=== PATIENT | female | born 2000 | race Native Hawaiian/Other Pacific Islander ===

== ENCOUNTER 2022-05-02 15:40 | Outpatient (CLI) | payer BC, SELFPAY ==
--- OUTSIDE RECORDS SUMMARY | 2022-05-02 15:42 | XMS_ITS | Encounter Summary ---
:2000 Author Organization [facility] Address [address] [place] [address] Care Team Providers Name Role Phone Karen Zaman APRN, C.N.P. Primary Care Provider [phone] Reason for Visit Reason Comments Preventive Visit Contraception Encounter Details Date Type Department Care Team Description 11/22/2017 Office Visit Department of Maegan Vela Preventive Gynecological Exam (Primary Dx); Obstetrics and BART Meyer, C.N.P. Need Vaccine Immunization Human Papillom avirus; Gynecology in [address] Management Contraceptive; [place], [place] Polycystic Ovary Syndrome [address] [address] [place] [phone] (Work) [phone] Social History Tobacco Use Types Packs/Day Years Used Date Smoking Tobacco: Never Smokeless Tobacco: Never Alcohol Use Standard Drinks/Week Comments No 0 (1 standard drink = 0.6 oz pure alcoho l) Sex Assigned at Date Recorded Not on file documented as of this encounter Last Filed Vital Signs Vital Sign Reading Time Taken Comments Blood Pressure 108/58 11/22/2017 1:36 PM CDT Pulse 78 11/22/2017 1:36 PM CDT Temperature - - Respiratory Rate 18 11/22/2017 1:36 PM CDT Oxygen Saturation - - Inhaled Oxygen Concentration - - Weight 71.6 kg (157 lb 15.4 oz) 11/22/2017 1:36 PM CDT Height 159.5 cm (5' 2.8) 11/22/2017 1:36 PM CDT Body Mass Index 28.16 11/22/2017 1:36 PM CDT Body Mass Index Percentile 91.28 % 11/22/2017 1:36 PM CD T Growth Chart: [facility] (Girls, 2-20 Years) documented in this encounter H&P Notes Maegan Vela APRN, CJustineN.P. - 11/22/2017 1:00 PM CDT CHIEF COMPLAINT/REASON FOR VISIT Chief Complaint Patient presents with ??? Preventive Visit ??? Contraception HISTORY OF PRESENT ILLNESS Otilia is an 17-year-old nulliparous female whose last menstrual period started 11/10/2017. She is utilizing oral contraceptive pill for control. She has had no problems with this and needs a refill today. She has not noticed any side effects with the control pill, but her mom says that sheis more vasquez now that she is on the pill. Her only other concern is surrounding her sleep. States that she only needs about 4-5 hours of sleep per night. She feels rested during the daytime hours. States that her mom is concerned because she does not feel that she is getting enough sleep. She does work the late shift on many occasions at [employer], which causes her to have some disrupted sleep. Shefeels that she is functioning just fine on this amount of sleep and states that this is not a concern for her today. MEDICATIONS Current Outpatient Prescriptions Medication Sig Dispense Refill ??? norgestimate-ethinyl estradiol (ORTHO TRI-CYCLEN LO, 28,) 0.18/0.215/0.25 mg-25 mcg per tablet Take 1 tablet by mouth daily. 84 tablet 3 No current facility-administered medications for this visit. ALLERGIES No Known Allergies SYSTEMS REVIEW Pertinent positives noted in HPI. Remainder of review of systems is negative. PAST MEDICAL/SURGICAL HISTORY Past Medical History: Diagnosis Date ??? Eczema ??? Overweight Body Mass Index 25-29.9 Adult ??? Polycystic Ovary Syndrome Past Surgical History: Procedure Laterality Date ??? ANKLE SURGERY Bilateral 2014 surgery to seperate fused ankle bones at [facility] in [facility] ??? ANKLE SURGERY Bilateral 2016 Surgery to correct duck gait. ??? HARDWARE REMOVAL FOOT / ANKLE Bilateral 2018 removed hardware from previous surgery PREVENTATIVE HEALTH Pap Smear: Not necessary till she is 20. Gonorrhea/Chlamydia: Declined. Mammogram: Not necessary due to age. Human Papilloma Virus vaccine: 1st dose of the vaccine was given today. She will return in 2 months for her next dose and 6 months for her final dose. Tdap: 05/18/2010. Influenza vaccine: Declines. Lipid panel: Declines. Diabetic screening: Declines. Colon screening: Not necessary due to age. SOCIAL HISTORY Social History Social History ??? Marital status: Single Spouse name: N/A ??? Number of children: N/A ??? Years of education: N/A Occupational History ??? [employer] ??? Student at [employer] Social History Main Topics ??? Smoking status: Never Smoker ??? Smokeless tobacco: Never Used ??? Alcohol use No ??? Drug use: No ??? Sexual activity: Yes Partners: Male control/ protection: Pill, Condom Other Topics Concern ??? None Social History Narrative ??? None FAMILY HISTORY Family History Problem Relation Age of Onset ??? Diabetes Mother ??? Unknown Father ??? No Known Problems Brother ??? Diabetes Maternal Grandmother ??? Unknown Paternal Grandmother ??? Unknown Paternal Grandfather VITAL SIGNS BP 108/58 Pulse 78 Resp 18 Ht 159.5 cm Wt 71.6 kg LMP 11/10/2017 (Exact Date) BMI 28.16 kg/m?? PHYSICAL EXAMINATION GENERAL: She is a well-appearing female, in no acute distress. SKIN: Warm, dry and pink. No rashes, lesions or bruising. HEENT: Vision and hearing grossly intact. LYMPH NODES: No cervical lymphadenopathy. No masses or tenderness. THYROID: No thyromegaly. No tenderness to palpation. HEART: Regular rate and rhythm. No murmurs, rubs, or gallops. LUNGS: Breathing nonlabored. Lungs clear to auscultation bilaterally. No wheezes or rales. ABDOMEN: Soft, nontender, nondistended. No masses palpable. EXTREMITIES: Lower extremities are nontender. No edema. Gait normal. MENTAL: Alert and oriented x3. Affect pleasant. Mood happy. IMPRESSION/REPORT/PLAN #1 Need Vaccine Immunization Human Papillomavirus First does provided today after discussing the risks, benefits, and side effects. She will return in2 months for her 2nd dose and 6 months for her 3rd dose. Nurse visits have been ordered for these times. #2 Preventive Gynecological Exam Reassured patient of normal exam findings today. History updated in electronic medical record. Recommend she return in 1 year for routine preventative health exam. #3 Management Contraceptive control pill was renewed today. I would like to see her back in 1 year for renewal. She will contact me if she has any concerns or problems. #4 Polycystic Ovary Syndrome Currently managed with control pills. She has no concerns at this time. documented in this encounter Plan of Treatment Not on filedocumented as of this encounter Visit Diagnoses Diagnosis Preventive Gynecological Exam - Primary Need Vaccine Immunization Human Papillom avirus Management Contraceptive Polycystic Ovary Syndrome documented in this encounter Care Teams Desulfurizer Hand Relationship Specialty Start Date End Date Karen Zaman APRN, C.N.P. PCP - General 02/23/17 05/11/21 [address], [place] [phone] documented as of this encounter
--- OUTSIDE RECORDS SUMMARY | 2022-05-02 15:42 | XMS_ITS | Encounter Summary ---
:2000 Author Organization [facility] Address [address] [place] [address] Care Team Providers Name Role Phone Unavailable Primary Care Provider Unavailable Encounter Details Date Type Department Care Team Description 10/07/2014 Hospital Encounter HX [facility] OBDain Mcnally M.D. [address] [place], [place] [phone] (Wo rk) Social History Tobacco Use Types Packs/Day Years Used Date Smoking Tobacco: Never Assessed Sex Assigned at Date Recorded Not on file documented as of this encounter Last Filed Vital Signs Vital Sign Reading Time Taken Comments Blood Pressure - - Pulse - - Temperature - - Respiratory Rate - - Oxygen Saturation - - Inhaled Oxygen Concentration - - Weight 76.3 kg (168 lb 3.4 oz) 10/07/2014 3:32 PM ELECTRIC METER TESTER Height - - Body Mass Index - - documented in this encounter H&P Notes Daniela Arnold M.D. - 10/07/2014 3:19 PM CST [id number] CHIEF COMPLAINT/REASON FOR VISIT Patient was seen in consultation at the request of her primary provider, Amanda Llanos, Nurse Practitioner, for secondary amenorrhea. HISTORY OF PRESENT ILLNESS Hayley is a 14-year-old nulliparous female who presents in consultation for secondary amenorrhea. Hayley underwent menarche at age 12. With her first period she had just 2 days of bleeding. Then about 3 months later she had another episode of vaginal bleeding that lasted only 1 day. She has had no vaginal bleeding since that time. She does report that over the last 2 years she has crampy abdominal painthat is episodic and occurs about 1 time per month at about the same time each month. This lasts about 1 day and is on and off, lasting about 3 minutes with each episode. She reports mild acne only on her face and she denies any abnormal hair growth. When she went in to see Amanda Llanos, laboratory evaluation was undertaken which showed normal TSH and prolactin, normal FSH and estradiol, normal fasting glucose, normal cholesterol but elevated total testosterone. MEDICATIONS See EMR. ALLERGIES See EMR. SYSTEMS REVIEW GENERAL: No fevers, chills, fatigue, unintentional weight loss or weight gain. HEENT: No changes in vision or hearing, no sore throat or nasal congestion. CARDIOVASCULAR: No chest pain, irregular heartbeat or racing heart. RESPIRATORY: No shortness of breath, cough or wheeze. GASTROINTESTINAL: No nausea, vomiting, diarrhea, constipation or abdominal pain. GENITOURINARY: Positive for abnormal vaginal discharge. No pain or burning with urination, no irregular vaginal bleeding, heavy periods, painful periods, leaking urine, leaking stool or gas. SKIN: Positive for rashes. BREASTS: No masses or lumps, no discharge from the nipples. NEUROLOGIC: No difficulty with memory, numbness, tingling, falls. PSYCH IATRIC: No anxiety, depression, or difficulty sleeping. ENDOCRINE: No heat intolerance, cold intolerance, excessive thirst or hair loss. PAST MEDICAL/SURGICAL HISTORY PAST MEDICAL HISTORY: See EMR. PAST SURGICAL HISTORY: Negative. MAIN GALLEY SCULLION HISTORY: Patient has never been . She has had a boyfriend in the past but has not been involved in a sexual way at all. She has never even kissed a boy. Please see the HPI for her menstrual history. SOCIAL HISTORY No tobacco, alcohol, or drug use. 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 She has no regular cardiovascular exercise and is not involved in any activities at school. She does report walking a lot at work during the summer. FAMILY HISTORY See EMR. VITAL SIGNS See EMR. PHYSICAL EXAMINATION GENERAL: Well-nourished female in no acute distress. HEAD: Normocephalic, atraumatic. EENT: Vision and hearing grossly intact. HEART: Regular rate and rhythm, no murmurs, rubs, or gallops. CHEST: Clear to auscultation bilaterally, no wheezes or rales. ABDOMEN: Soft, nondistended, nontender, normoactive bowel sounds. PELVIC: External genitalia without lesions or abnormalities. Normal pubic hair distribution. Tre stage 4. No clitoromegaly. Urethral meatus normal location and appearance, without masses. BREASTS: Symmetric bilaterally. Tre stage 4 breast development. No lesions or dimpling of the skin noted. THYROID: No thyromegaly or nodularity. LOWER EXTREMITIES: Nontender. No edema. SKIN: Hyperpigmentation with mild skin thickening in the axillary and neck folds consistent with acanthosis nigricans. Dark hair growth along the low back and upper lip. Noninflammatory acne diffusely on the face and mild noninflammatory acne on the upper chest. NEUROLOGIC: Alert and oriented x3. Physical examination performed with my nurse, Effie Lawrence, present. IMPRESSION/REPORT/PLAN A 14-year-old nulliparous female who presents in consultation for secondary amenorrhea, likely related to PCOS. 1. Secondary amenorrhea: The patient has amenorrhea, acne, evidence of hirsutism with dark hair growth on her lower back and upper lip and biochemical evidence of hyperandrogenemia with an elevated total testosterone on recent laboratory evaluation. Therefore, she meets criteria for polycystic ovariansyndrome. However, to rule out end-organ dysfunction, I am going to give her a course of Provera for10 days and we will see if she has a withdrawal bleed. I suspect that she will. If not, we would need to evaluate for an end-organ issue. We discussed that she does meet criteria for PCOS today. We discussed the pathophysiology of PCOS at length and she was also given handout on PCOS that she can review on her own with her mother. We discussed that women PCOS are at increased risk of hyperlipidemia, which she does not currently have, as well as glucose intolerance or overt diabetes. We discussed that a fasting sugar does not always detect diabetes in PCOS patients and that a 2 hour GTT is recommended. She will return for this at her convenience but does need to be fasting when she returns. We willneed to discuss the importance of maintaining a healthy weight if possible or even losing a modest amount of weight, which can help with return of ovarian function when she returns. We will also need to discuss long-term treatment of this such as management with OCPs when she returns. If she were to fail to have withdrawal bleed on the Provera, as noted above, we would need to proceed with further evaluation with a course of oral contraceptive pills for diagnostic purposes. In the meantime, the patient was counseled regarding the Provera and to expect a withdrawal bleed 1 to 7 days after stopping the medication 2. Obesity: As noted above, even modest weight loss should help with her ovarian function. We will discuss this further when she returns. 3. Followup: Three weeks. Daniela Arnold M.D./colleen cc: Amanda Llanos [phone] [place] [id number] Electronically Signed By: DANIELA ARNOLD MD On: 10/09/2014 07:04 PM Source: [facility] MHSDOLBEYNONRADSYS Document Id: [id number] TRIC METER TESTER documented in this encounter Miscellaneous Notes Miscellaneous - Daniela Arnold M.D. - 10/07/2014 6:25 PM CST Ambulatory Patient Summary [facility] [address] [place], [place] [id number] Visit Information Name: HAYLEY SIBLEY [facility] Number: [id number] Visit Date: 10/07/2014 18:25:34 Attending Provider: DANIELA ARNOLD MD Primary Care Provider: PCP, UNASSIGNED - FB HAYLEY SIBLEY has been given the following list of medications: Your Medications It is important to take your medications as directed. Use a pill box or chart to help remind you to take your medications. Please let your doctor or nurse know if you have problems taking your medications. Medication/Strength How to Take Indications/Special Instructions/Comments/Notes for Patient Medication Changes/Routing medroxyPROGESTERone (Provera 10 mg oral tablet) 1 Tablet(s), Oral, once a day New Routed to [facility] [address] [place] [address] Stop Taking the Following Medications: Medication list as of 10-07-14 18:25 Attention: If you have any medications at home that are not on this list, DO NOT take them until youcontact your provider for clarification. Give a copy of your medication list to your primary care provider. Update your medication list any time medications or doses are changed and carry your medication list at all times in case of emergency. Electronically Signed By: DANIELA ARNOLD MD Signed On:07-OCT-2014 18:25:30 Additional Information: Source: [facility] POWERCHART Document Id: [id number] TRIC METER TESTER Miscellaneous - Daniela Arnold M.D. - 10/07/2014 6:25 PM CST Ambulatory Discharge Medication List [address] [phone] Visit Information Name: HAYLEY SIBLEY [facility] Number: [id number] Visit Date: 10/07/2014 18:25:33 Attending Provider: DANIELA ARNOLD MD Primary Care Provider: PCP, UNASSIGNED - FB TOÑITO HAYLEY has been given the following list of medications: Your Medications It is important to take your medications as directed. Use a pill box or chart to help remind you to take your medications. Please let your doctor or nurse know if you have problems taking your medications. Medication/Strength How to Take Indications/Special Instructions/Comments/Notes for Patient Medication Changes/Routing medroxyPROGESTERone (Provera 10 mg oral tablet) 1 Tablet(s), Oral, once a day New Routed to [address] [address] Stop Taking the Following Medications: Medication list as of 10-07-14 18:25 Attention: If you have any medications at home that are not on this list, DO NOT take them until youcontact your provider for clarification. Give a copy of your medication list to your primary care provider. Update your medication list any time medications or doses are changed and carry your medication list at all times in case of emergency. Electronically Signed By: DANIELA ARNOLD MD Signed On:07-OCT-2014 18:25:30 Additional Information: Source: [facility] POWERCHART Document Id: [id number] TRIC METER TESTER Miscellaneous - Manan Lawrence L.P.N. - 10/07/2014 3:32 PM CST Adult Planning Consultant Intake/History Adult Planning Consultant Intake/History Entered On: 10/07/2014 15:33 ELECTRIC METER TESTER Performed On: 10/07/2014 15:32 ELECTRIC METER TESTER by MANAN LAWRENCE Intake Chief Complaint : Consult amenorrhea for 2 years Peripheral Pulse Rate : 78 /min Respiratory Rate : 16 /min Heart Rhythm : Regular Systolic Blood Pressure : 108 mmHg Diastolic Blood Pressure : 62 mmHg NIBP Mean : 77 mmHg BP Location : Right upper extremity Blood Pressure Cuff Size : Regular Actual Weight : 76.3 kg(Converted to: 168 lb 3 oz) Weight Source : Standing scale Dosing Weight Clinic : 76.3 kg CAROLDORINDAMANAN L - 10/07/2014 15:32 ELECTRIC METER TESTER General Info Languages : Albanian Is Patient Female and 13-50 no hysterectomy : Yes Status : Patient denies Are you ? : No MANAN LAWRENCE - 10/07/2014 15:32 ELECTRIC METER TESTER Subjective Pain Symptoms : No MANAN LAWRENCE - 10/07/2014 15:32 ELECTRIC METER TESTER Dependent Habits Tobacco Use/Currently Using : No Smoking Status : Never smoker MANAN LAWRENCE - 10/07/2014 15:32 ELECTRIC METER TESTER ID Screen Travel Within Last 21 Days : No MANAN LAWRENCE - 10/07/2014 15:32 ELECTRIC METER TESTER Source: [facility] [employer] Document Id: [id number] ELECTRIC METER TESTER!26 TRIC METER TESTER documented in this encounter Plan of Treatment Not on filedocumented as of this encounter Visit Diagnoses Not on filedocumented in this encounter
--- OUTSIDE RECORDS SUMMARY | 2022-05-02 15:42 | XMS_ITS | Encounter Summary ---
:2000 Author Organization [facility] Address [address] [place] [address] Care Team Providers Name Role Phone Unavailable Primary Care Provider Unavailable Encounter Details Date Type Department Care Team Description 08/24/2009 Hospital Encounter HX NO MAPPING Cristine Sousa M.D. [phone] (Wo rk) Social History Tobacco Use Types Packs/Day Years Used Date Smoking Tobacco: Never Assessed Sex Assigned at Date Recorded Not on file documented as of this encounter Plan of Treatment Not on filedocumented as of this encounter Procedures Procedure Name Priority Date/Time Associated Diagnosis Comme nts DX FOOT RIGHT 3+ Routine 08/24/2009 4:30 PM Resul ts for this VIEWS LIGHT BULB TESTER procedure are i n the results section. DX TIBIA FIBULA Routine 08/24/2009 4:30 PM Result s for this RIGHT 2 VIEWS LIGHT BULB TESTER procedure are in the results section. documented in this encounter Results DX Foot Right 3+ Views (08/24/2009 4:30 PM LIGHT BULB TESTER) Anatomical Region Laterality Modality Lower Extremity, Foot Right Radiographic Imagi ng Specimen (Source) Anatomical Collection Method Collection Time Re ceived Time Location / / Volume Laterality 08/24/2009 4:30 PM LIGHT BULB TESTER Narrative 08/24/2009 4:48 PM LIGHT BULB TESTER FINDINGS: The bones are intact and show no evidence of fracture or focal destruction. The joint spaces are maintained and no soft tissue abnormality is seen. The epiphyses are n ormal for age. ?? CONCLUSION: Negative right foot Procedure Note Espinoza Vela M.D. / Provider, Michael rodriguez M.D. - 02/13/2017 FINDINGS: The bones are intact and show no evidence of fracture or focal destruction. The joint spaces are maintained and no soft tissue abnormality is seen. The epiphyses are n ormal for age. CONCLUSION: Negative right foot Norberto Cole Jr., R.D.M.S. G DIAGNOSTIC IMAGI NG PROCEDURES DX Tibia Fibula Right 2 Views (08/24/2009 4:30 PM LIGHT BULB TESTER) Anatomical Region Laterality Modality Lower Extremity, TibFib Right Radiographic Ameena ging Specimen (Source) Anatomical Collection Method Collection Time Re ceived Time Location / / Volume Laterality 08/24/2009 4:30 PM LIGHT BULB TESTER Narrative 08/24/2009 4:49 PM LIGHT BULB TESTER FINDINGS: The right tibia and fibula are intact and show no evidence of fracture or focal destruction. The ep iphyses are normal for age. No soft tissue abnormality is seen. Procedure Note Espinoza Vela M.D. / ProviderMichael M.D. - 02/13/2017 FINDINGS: The right tibia and fibula are intact and show no evidence of fracture or focal destruction. The ep iphyses are normal for age. No soft tissue abnormality is seen. Norberto Cole Jr., R.D.M.S. IMG DIAGNOSTIC IMAGI NG PROCEDURES documented in this encounter Visit Diagnoses Not on filedocumented in this encounter
--- OUTSIDE RECORDS SUMMARY | 2022-05-02 15:42 | XMS_ITS | Encounter Summary ---
:2000 Author Organization [facility] Address [address] [place] [address] Care Team Providers Name Role Phone Unavailable Primary Care Provider Unavailable Encounter Details Date Type Department Care Team Description 02/24/2011 Hospital Encounter HX [facility] Sa hawk Sousa M.D. [phone] (Wo rk) Social History Tobacco Use Types Packs/Day Years Used Date Smoking Tobacco: Never Assessed Sex Assigned at Date Recorded Not on file documented as of this encounter Last Filed Vital Signs Vital Sign Reading Time Taken Comments Blood Pressure - - Pulse - - Temperature - - Respiratory Rate - - Oxygen Saturation - - Inhaled Oxygen Concentration - - Weight 55.3 kg (121 lb 14.6 oz) 02/24/2011 4:00 PM CDT Height 154 cm (5' 0.63) 02/24/2011 4:00 PM CDT Body Mass Index 23.32 02/24/2011 4:00 PM CDT Body Mass Index Percentile 91.32 % 02/24/2011 4:00 PM CD T Growth Chart: CDC (Girls, 2-20 Years) documented in this encounter Progress Notes Angella Sousa M.D. - 02/24/2011 12:00 AM CDT [id number] CHIEF COMPLAINT/ REASON FOR VISIT Behavioral concerns. Otilia is frequently scared or upset. Severe psychosocial stresses. HISTORY OF PRESENT ILLNESS Otilia was evaluated for a sore throat and cough 2 weeks ago. Immediately after that visit, mother called to voice her concern about Otilia's mental health. She said that Otilia often breaks into tears and becomes extremely anxious when she sees a police car. Mother feels this is because her mother was incarcerated for 2 months last year. Otilia learned of this after the fact. She says that her mother told her she was going to [place] to supervisor picking crew her grandmother. When Otilia learned that her mother was actually in half-way, she was especially upset. Even now, Otilia does not know why her mom was incarcerated. Nor does mother share these details with us. Mom feels that ever since then, Otilia has been particularly vasquez. She is often irritable and upset, sometimes angry and sometimes crying. She has finished 6th grade but failed a number of classes. Her school performance is very poor. Mother says no plan has been advanced to help Otilia with her homework, but I have not yet had a chance to discuss this with her teachers. Mother gives me written permission today to do that. Otilia says that she is in ESL, Japanese is a second language, and that her writing is poor. She has trouble with reading and math. There is nothing at school about which she is enthusiastic. She has met with a counselor at school. She says this is because there is too much drama at school. I ask her to elaborate but she is vague in her descriptions. She says people make fun of her because of the way she walks. She feels she has only a few close friends. She often feels like an outsider at school. However, she does not relate any incidence of bullying. Otilia also complains that there is too much drama at home. She lives with her mother and brother. Her dad has never been in the picture. Interestingly, mother's description of Otilia's behavior is that it involves too much drama. A portion of the visit is conducted by interviewing Otilia privately. When I ask for some things she would like to change, she says she wishes her mother and brother stop making fun of her weight. She says, I used to be thin but now I'm fat. She says that other family members make pig noises when she is nearby. Otilia is not in any individual or team sports. For exercise, she will sometimes walk downtown with friends. [place] She says it is possible to play outside and that other children in the neighborhood are outside playing. However, given Otilia's age, I do not think she plays outside much with her neighbors. She denies any feeling that she would be better off or that she would do something to hurt herself. In fact when the subject comes up, she squints her eyes and shakes her head; it is unpleasant to her. She also wishes that she was not expected to do things at home and then yelled at when everything is not done as mother expects. Otilia says she is expected to clean up after her mother and brother and that her mother complains that Otilia has not done this or that. Finances are a concern. Otilia's mother works at [employer]. Money is tight. Otilia does not have a chance to earn money or get an allowance. 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 CURRENT MEDICATIONS None ALLERGIES No known allergies SYSTEMS REVIEW SKIN: No rashes. ENT: Her sore throat resolved. LUNGS: Respiratory: She complains that she is still coughing. HEART: No chest pain. GI: No complaints of constipation. : She is premenarchal. SOCIAL HISTORY She lives with her mother and brother. She says she does not have a boyfriend. Nor has she had one in the past. VITAL SIGNS See EMR PHYSICAL EXAM GENERAL: BMI, at 23, is at the 91st percentile for age. She is chubby. SKIN: No rashes. EYES: No redness or drainage. EOM full. ENT: Normal tympanic membranes. Posterior pharynx normal. LYMPH NODES: No cervical lymph node enlargement. HEART: Normal S1 and split S2 without murmurs. LUNGS: Clear breath sounds. No wheezing. When I have Otilia take deep breaths, she dissolves into a coughing fit. Her breaths are quite exaggerated, even for a good exam. She is dramatic in her presentation and the cough sounds self induced. ABDOMEN: Soft, without masses or hepatosplenomegaly. MENTAL: Voice soft and immature, some baby talk pronunciation, speech rapid. Mood neutral, affect with exaggerated, dramatic quality. IMPRESSION/REPORT/PLAN 1. Almost 11-year-old girl with adjustment disorder with variable mood. Mild depressive symptoms, as well as irritability. 2. Severe psychosocial stresses. 3. School failure. I will start by getting some information from her teachers and the school counselor. 4. Mild residual cough. No evidence of any chronic illness or ongoing viral illness. 5. Estimated GAF 60. 6. I am recommending an evaluation by a therapist. I referred Otilia to [facility]. I have given mother all contact information and have asked that she set up an appointment. 7. Detailed evaluation, 30 minutes. SMB/glt Signed Angella Sousa M.D. Burring Wheel Operator Electronically Signed By: ANGELLA SOUSA MD On: 03/02/2011 11:44 am Modified by and Electronically Signed by: ANGELLA SOUSA MD On: 03/02/2011 11:44 am Source: [facility] MHSDOLBEYNONRADSYS Document Id: [id number] documented in this encounter Miscellaneous Notes Telephone Encounter - Sammie Taylor LJustinePJustineN. - 12/21/2012 11:03 AM CDT Phone Message Document Contains Addenda Addendum by ANGELLA SOUSA MD on 21 December 2012 11:04:59 CDT From: ANGELLA SOUSA MD To: SAMMIE TAYLOR; Sent: 12/21/2012 11:04:59 CDT Subject: RE: Phone Message thank you. From: SAMMIE TAYLOR To: ANGELLA SOUSA MD; Sent: 12/21/2012 11:03:45 CDT Subject: Phone Message Caller is: ( ) Patient ( x ) Mother ( ) Father ( ) Spouse ( ) Daughter ( ) Son ( ) Pharmacy ( ) Other: Physician: Patient MRN #: Reason for Call: Phonecall from mom, requesting a copy of Otilia's physical for sports, in reviewing Otilia's records, there is not a current physical on file, advised to mom that Otilia needs a physical exam in order for us to complete the necessary documents for at school. Message: Advice/Action: Source used: ( ) Verbalizes understanding of instructions ( ) Instructed to call back if symptoms worsen or do not resolve ( ) Refused to see provider ( ) Appointment Scheduled ( ) OK to leave message on voice mail ( ) Patient told to expect return call: ( ) today ( ) tomorrow ( ) next work day ( ) Patient's email ( ) Patient told physician out of office, will call upon return call on ( ) ( ) Patient told physician out of office, routed to other physician ( ) Other ( ) Call back telephone number ( ) Call back cell phone number ( ) Source: [facility] CorrexCHART Document Id: [id number] Electronically signed by Conversion, [facility] Forepart Rounder [id number] at 02/12/2017 10:06 PM CDT Miscellaneous - Sammie Taylor L.PJustineN. - 02/24/2011 4:00 PM CDT Pediatric Auto Air Conditioning Apprentice Intake/History Pediatric Auto Air Conditioning Apprentice Intake/History Entered On: 02/24/2011 16:02 CDT Performed On: 02/24/2011 16:00 CDT by SAMMIE TAYLOR Intake Chief Complaint: behavior issues Temperature Oral: 36.8C(Converted to: 98.2DegF) Peripheral Pulse Rate: 68/min Respiratory Rate: 16/min Systolic Blood Pressure: 110mmHg Diastolic Blood Pressure: 60mmHg NIBP Mean: 77mmHg BP Location: Left upper extremity Heart Rhythm: Regular Height: 154.00cm(Converted to: 5ft 1in, 60.63in) Actual Weight: 55.300kg(Converted to: 121lb 15oz) Weight Source: Standing scale Dosing Weight Clinic: 55.30kg Clinic BSA: 1.54 Body Mass Index: 23.32kg/m2 SAMMIE TAYLOR - 02/24/2011 16:00 CDT Subjective Pain Symptoms: No SAMMIE TAYLOR - 02/24/2011 16:00 CDT Dependent Habits Tobacco Use/Currently Using: No SAMMIE TAYLOR - 02/24/2011 16:00 CDT Allergy Allergies (Active) NKA Estimated Onset Date: Unspecified ; Created By: ANGELLA SOUSA MD; Reaction Status: Active ; Category: Drug ; Substance: NKA ; Type: Allergy ; Updated By: ANGELLA SOUSA MD; Reviewed Date: 12/16/2009 13:11 CDT Source: [facility] Vivo Document Id: [id number] CDT!21 documented in this encounter Plan of Treatment Not on filedocumented as of this encounter Visit Diagnoses Not on filedocumented in this encounter
--- OUTSIDE RECORDS SUMMARY | 2022-05-02 15:42 | XMS_ITS | Clinical Summary ---
:2000 Author Organization [facility] Address [address] [place] [address] Care Team Providers Name Role Phone Elsewhere, Pcp Primary Care Provider Unavailable Source Comments Patient records contain information from all sites at [facility]. For routine questions regarding patient records, call [phone] during business hours, M-F 8:00 AM - 5:00 PM Central Time. Record requests for emergency care only can be directed to [phone] at any time.[facility] Allergies No known active allergies Medications Medication Sig Dispensed Refills Start Date End Date Status norgestimate-ethinyl Take 1 tablet by 84 tablet 3 11/22/2017 Active estradiol (ORTHO mouth daily. TRI-CYCLEN LO, 28,) 0.18/0.215/0.25 mg-25 mcg per tablet Active Problems Problem Noted Date Overweight Body Mass Index 25-29.9 Adult 11/22/2017 Milium Colloid 06/12/2016 Polycystic Ovary Syndrome 10/07/2014 Rash 09/17/2014 Immunizations Name Administration Dates Next Due 9vHPV 11/22/2017 DTaP (Infanrix, Tripedia) 12/11/2003, 06/13/2000, 1999 , 1999, 1999 H1N1 All Forms 08/24/2009 HepA Pediatric/Adolescent 05/18/2010 HepB, Unspecified 05/18/2010, 1999, 1999, 03/11 Hib (HbOC) (discontinued) 1999 Hib (PRP-T) (ACTHIB, HIBERIX) 06/13/2000, 1999 IPV 12/11/2003, 1999, 1999, 05/12 MCV4 (Menactra) 05/18/2010 MMR 12/11/2003, 03/23/2000 PCV7 (discontinued) 03/26/2001, 02/08/2001 Tdap 05/18/2010 RONALD 11/04/2002 Family History Medical History Relation Name Comments No Known Problems Brother Unknown Father Diabetes Maternal Grandmother Diabetes Mother Unknown Paternal Grandfather Unknown Paternal Grandmother Relation Name Status Comments Brother Alive Father Maternal Grandfather Maternal Grandmother Alive Mother Alive Paternal Grandfather Paternal Grandmother Social History Tobacco Use Types Packs/Day Years Used Date Smoking Tobacco: Never Smokeless Tobacco: Never Alcohol Use Standard Drinks/Week Comments No 0 (1 standard drink = 0.6 oz pure alcoho l) Sex Assigned at Date Recorded Not on file Last Filed Vital Signs Vital Sign Reading [...] Mass Index 28.16 11/22/2017 1:36 PM CDT Plan of Treatment Health Maintenance Due Date Last Done Comments Cervical Cancer Screening 1999 Chlamydia and Gonorrhea 1999 Screening HIV Screening 1999 Hepatitis C Screening 1999 COVID-19 Vaccine (#1) 1999 HPV Vaccines (2 - 3-dose 12/20/2017 11/22/2017 series) Depression Screening 09/11/2021 (Annual PHQ-2) Influenza Vaccine (#1) 2022 DTaP,Tdap,and Td Vaccines 01/15/2031 01/15/2021, 05/18/2010 , (8 - Td or Tdap) 12/11/2003, Additional history exists Pneumococcal vaccine (0-64 Aged Out 03/26/2001, 1, No longer eligible years) 02/08/2001, Additional based on patient's age history exists to complete this topic Hepatitis B Vaccines Completed 05/18/2010, 1999, 1999, Additional history exists Insurance Payer Benefit Plan Subscriber ID Effective Phone Address Typ e / Group Dates BLUE CROSS BCBS BLUE [id number] 2020-Prese ATTN: Hemanth hernandez HMO BLUE SHIELD PLUS HMO nt [employer] [facility] [address] [address] [place] [address] Care Teams Signal Processing Engineer Relationship Specialty Start Date End Date Elsewhere, Pcp PCP - General Internal Medicine 01/03/22
--- OUTSIDE RECORDS SUMMARY | 2022-05-02 15:42 | XMS_ITS | Encounter Summary ---
:2000 Author Organization [facility] Address [address] [place] [address] Care Team Providers Name Role Phone Unavailable Primary Care Provider Unavailable Encounter Details Date Type Department Care Team Description 05/09/2008 Hospital Encounter HX NO MAPPING Cristine Sousa M.D. [phone] (Wo rk) Social History Tobacco Use Types Packs/Day Years Used Date Smoking Tobacco: Never Assessed Sex Assigned at Date Recorded Not on file documented as of this encounter Plan of Treatment Not on filedocumented as of this encounter Procedures Procedure Name Priority Date/Time Associated Diagnosis Comme nts DX TOES RIGHT 2 Routine 05/09/2008 3:50 PM Result s for this VIEWS CDT procedure are i n the results section. documented in this encounter Results DX Toes Right 2 Views (05/09/2008 3:50 PM CDT) Anatomical Region Laterality Modality Lower Extremity, Toes Right Radiographic Imagi ng Specimen (Source) Anatomical Collection Method Collection Time Re ceived Time Location / / Volume Laterality 05/09/2008 3:50 PM CDT Impressions 05/09/2008 3:50 PM CDT Normal study. Narrative 05/09/2008 3:50 PM CDT Originally Signed By UNKNOWN, PERSONNEL Reason for exam: PAIN TO RT 5TH TOE The osseous structures and joint spaces are normally aligned and well maintained, without evidence of fracture , dislocation or significant degeneration. The surrounding soft tissu es are normal. ? Procedure Note Susan Sheikh M.D. - 02/14/2017F ormatting of this note might be different from the original. Originally Signed By UNKNOWN, PERSONNEL Reason for exam: PAIN TO RT 5TH TOE The osseous structures and joint spaces are normally aligned and well maintained, without evidence of fracture , dislocation or significant degeneration. The surrounding soft tissu es are normal. IMPRESSION: Normal study. Historical Provider IMG DIAGNOSTIC IMAGING PROCE DURES documented in this encounter Visit Diagnoses Not on filedocumented in this encounter
--- OUTSIDE RECORDS SUMMARY | 2022-05-02 15:42 | XMS_ITS | Encounter Summary ---
:2000 Author Organization [facility] Address [address] [place] [address] Care Team Providers Name Role Phone Unavailable Primary Care Provider Unavailable Encounter Details Date Type Department Care Team Description 10/19/2016 Hospital Encounter HX [facility] Madison Pineda APRN, C.N.P. [address] [place], [place] [phone] (Wo rk) Social History Tobacco Use Types Packs/Day Years Used Date Smoking Tobacco: Never Sex Assigned at Date Recorded Not on file documented as of this encounter Last Filed Vital Signs Vital Sign Reading Time Taken Comments Blood Pressure - - Pulse - - Temperature - - Respiratory Rate - - Oxygen Saturation - - Inhaled Oxygen Concentration - - Weight 78.1 kg (172 lb 2.9 oz) 10/19/2016 3:30 PM COSMETOLOGY EDUCATOR Height - - Body Mass Index - - documented in this encounter Medications at Time of Discharge Medication Sig Dispensed Refills Start Date End Date norgestimate-ethinyl Take 1 tablet by 0 7 11/22/2017 estradiol (ORTHO mouth daily. TRI-CYCLEN LO, 28,) 0.18/0.215/0.25 mg-25 mcg per tablet documented as of this encounter Progress Notes Madison Pineda APRN, C.N.P. - 10/19/2016 3:21 PM CST [id number] CHIEF COMPLAINT/REASON FOR VISIT Amenorrhea likely secondary to PCOS. HISTORY OF PRESENT ILLNESS Hayley is a 16-year-old nulliparous female, who was previously seen in the Department of Obstetrics and Gynecology on multiple occasions by Alonzo most recently on February 10, 2015. Following a completeand thorough workup by Dr. Rosado she has been diagnosed with PCOS and was recommended to take her oral contraceptive pills. Patient notes that about 6 months ago it was recommended by her bread wrapping machine feeder to stop taking the pills because she was going to be having surgery on her feet and would be immobile for a lengthy period of time. She stopped taking her pills 6 months ago and has not had a period since that time. She is here today basically to restart her pills and hopefully to initiate her periods again. She is accompanied by her mom who has many questions about the current situation. Her mom is requesting information on the oral contraceptive pill that she is on therefore I did print out patient information on Ortho Cyclen from [facility] and provided it for them. She also requested information on the laboratory work that led to the diagnosis of PCOS. This laboratory work was actually performed at the [facility] before she was referred to Dr. Rosado for consultation. I was able to retrieve that from her electronic medical record and print it out for them to have. Finally, shewas requesting information on PCOS. I again went to [facility] and printed out the patient informationbeyond the basics on PCOS for them to take home with them and review and I tried to answer all of their questions to the best of my ability. MEDICATIONS 1. AmLactin 12% topical cream. 2. Clobetasol 0.05% topical ointment. 3. Ortho Cyclen (prescription renewed today). ALLERGIES No known allergies. PAST MEDICAL/SURGICAL HISTORY Reviewed in EMR as of today's date. VITAL SIGNS Heart rate 80, blood pressure 102/70. Weight 78.1. Tobacco use, no. IMPRESSION/REPORT/PLAN 1. Amenorrhea x6 months. 2. History of polycystic ovarian syndrome. PLAN: I did provide Hayley and her mom the information that they requested. I also sent a prescription for her Ortho Cyclen to the [facility] pharmacy. She will start taking that pill today. She notes thatthere is no chance that she is because she has not been sexually active and she has no other concerns for me today. It was recommended that they follow up with Dr. Rosado 1 year following the diagnosis. They are over due for that. I recommended that by this summer they follow up with Dr. Mook Banks as she recommended. They state that they are agreeable at this point and neither Eloise nor her mom have any additional concerns or questions. Madison Pineda CNP/colleen Electronically Signed By: MADISON PINEDA APRN, CNP On: 10/20/2016 09:53 AM Source: [facility] MHSDOLBEYNONRADSYS Document Id: [id number] ETOLOGY EDUCATOR documented in this encounter Miscellaneous Notes Miscellaneous - Madison Pineda APRN, C.N.P. - 10/19/2016 4:14 PM COSMETOLOGY EDUCATOR Ambulatory Discharge Medication List [address] [id number] Visit Information Name: HAYLEY SIBLEY [facility] Number: [id number] Current Date: 10/19/2016 16:14:18 Attending Provider: MADISON PINEDA APRN, CNP Primary Care Provider: LINDA AL APRN [facility] HAYLEY SIBLEY has been given the following list of medications: Your Medications It is important to take your medications as directed. Use a pill box or chart to help remind you to take your medications. Please let your doctor or nurse know if you have problems taking your medications. Medication/Strength How to Take Indications/Special Instructions/Comments/Notes for Patient Medication Changes/Routing *ammonium lactate topical (Amlactin 12% topical cream) 1 gary, Topical, two times a day *clobetasol topical (clobetasol 0.05% topical ointment) 1 gary, Topical, two times a day 1-2 months to back of neck norgestimate-ethinyl estradiol (Ortho-Cyclen 0.25 mg-35 mcg oral tablet) 1 Tablet(s), Oral, once a day start first tablet today Routed to [address] [id number] * You have let us know that you are not taking this medication as listed. Please talk with your primary care provider or the health care provider who prescribed the medication as soon as possible. Stop Taking the Following Medications: Medication list as of 10-19-16 16:14 Attention: If you have any medications at home that are not on this list, DO NOT take them until youcontact your provider for clarification. Give a copy of your medication list to your primary care provider. Update your medication list any time medications or doses are changed and carry your medication list at all times in case of emergency. Electronically Signed By: MADISON PINEDA APRN, CNP Signed On:19-OCT-2016 16:14:17 Additional Information: Source: [facility] POWERCHART Document Id: [id number] ETOLOGY EDUCATOR Miscellaneous - Madison Pineda APRN, C.N.P. - 10/19/2016 4:14 PM COSMETOLOGY EDUCATOR Ambulatory Patient Summary [address] [id number] Visit Information Name: HAYLEY SIBLEY [facility] Number: [id number] Current Date: 10/19/2016 16:14:19 Physicians Attending Provider: MADISON PINEDA APRN, CNP Primary Care Provider: LINDA AL APRN [facility] HAYLEY SIBLEY has been given the following list of follow-up instructions, medication list, and patient education materials: Follow-up Instructions Your Medications Here is a list of your medications. It is important to take your medications as directed. Use a pillbox or chart to help remind you to take your medications. Please let your doctor or nurse know if you have problems taking your medications. Medication/Strength How to Take Indications/Special Instructions/Comments/Notes for Patient Medication Changes/Routing *ammonium lactate topical (Amlactin 12% topical cream) 1 gary, Topical, two times a day *clobetasol topical (clobetasol 0.05% topical ointment) 1 gary, Topical, two times a day 1-2 months to back of neck norgestimate-ethinyl estradiol (Ortho-Cyclen 0.25 mg-35 mcg oral tablet) 1 Tablet(s), Oral, once a day start first tablet [place] [address] * You have let us know that you are not taking this medication as listed. Please talk with your primary care provider or the health care provider who prescribed the medication as soon as possible. Stop Taking the Following Medications: Medication list as of 10-19-16 16:14 Attention: If you have any medications at home that are not on this list, DO NOT take them until youcontact your provider for clarification. Give a copy of your medication list to your primary care provider. Update your medication list any time medications or doses are changed and carry your medication list at all times in case of emergency. Electronically Signed By: MADISON PINEDA APRN, CNP Signed On:19-OCT-2016 16:14:17 Your Allergies & Intolerances Substance Reaction Symptoms Category Comments No Known Allergies Drug Your Problem List Problem Status Onset Comments Obesity NOS Active Polycystic Ovary Syndrome (PCOS) Active Acanthosis Nigricans Active Milium Colloid Active Your Upcoming Appointments Date Time Location Provider No Appointments found Attention: Contact your local Clinic if further appointment detail needed. Consider Using Patient Online Services Patient Online Services is a secure online and Mobile application that lets you: ?? View lab and test results ?? View portions of your medical record including clinical notes, immunizations and discharge summaries ?? Request an appointment or medication refill ?? Review your appointment schedule ?? Send secure messages to your care team Its easy to create an account if you dont have one. Go to [email or web address] and click on Create Your Account. Then, follow the directions to complete the online form. Youll be asked for your [facility] number which you can find at the top of this document. Your Goals/Additional instructions: Source: [facility] POWERCHART Document Id: [id number] ETOLOGY EDUCATOR Miscellaneous - Cristobal Munson R.N. - 10/19/2016 3:30 PM CST Pediatric Genetic Coordinator Intake/History Document Has Been Updated Pediatric Genetic Coordinator Intake/History Entered On: 10/19/2016 15:31 COSMETOLOGY EDUCATOR Performed On: 10/19/2016 15:30 COSMETOLOGY EDUCATOR by CRISTOBAL MUNSON manager behavior LMP Date : 02/2016 Peripheral Pulse Rate : 80 /min Systolic Blood Pressure : 102 mmHg Diastolic Blood Pressure : 70 mmHg NIBP Mean : 81 mmHg Actual Weight : 78.1 kg(Converted to: 172 lb 3 oz) Weight Source : Standing scale Dosing Weight Clinic : 78.1 kg CRISTOBAL MUNSON RN - 10/19/2016 15:32 COSMETOLOGY EDUCATOR Chief Complaint : Irregular periods CRISTOBAL MUNSON RN - 10/19/2016 15:30 COSMETOLOGY EDUCATOR Onset of Symptoms : 2014 CRISTOBAL MUNSON RN - 10/19/2016 15:32 COSMETOLOGY EDUCATOR General Info Present in Room During Exam/Procedure : Mother Information Given By : Patient, Mother Preferred Communication Mode : Verbal Languages : East Timorese, Mongolian Is Patient Female and 13-50 no hysterectomy : Yes Status : Patient denies Are you ? : No CRISTOBAL MUNSON RN - 10/19/2016 15:32 COSMETOLOGY EDUCATOR Subjective Pain Symptoms : No Cardiovascular Symptoms : None GI Symptoms : None CRISTOBAL MUNSON RN - 10/19/2016 15:32 COSMETOLOGY EDUCATOR Dependent Habits Exposure to Tobacco Smoke : Lives with someone who smokes Smoking Status : Never smoker Tobacco 2A : No Tobacco Use/Currently Using : No Tobacco Use/Last 30 Days : No Tobacco Use/Last 12 months : No CRISTOBAL MUNSON RN - 10/19/2016 15:32 COSMETOLOGY EDUCATOR Allergy (As Of: 10/19/2016 15:36:48 COSMETOLOGY EDUCATOR) Allergies (Active) NKA Estimated Onset Date: Unspecified ; Created By: TUCKER GERMAIN MD; Reaction Status: Active ; Category: Drug ; Substance: NKA ; Type: Allergy ; Updated By: TUCKER GERMAIN MD; Reviewed Date: 10/19/2016 15:29 COSMETOLOGY EDUCATOR Sexuality Menarche Onset : 12 year(s) Contraception Type : None CRISTOBAL MUNSON RN - 10/19/2016 15:32 COSMETOLOGY EDUCATOR Source: [facility] POWERCHART Document Id: [id number] COSMETOLOGY EDUCATOR!34 ETOLOGY EDUCATOR documented in this encounter Plan of Treatment Not on filedocumented as of this encounter Visit Diagnoses Not on filedocumented in this encounter
--- OUTSIDE RECORDS SUMMARY | 2022-05-02 15:42 | XMS_ITS | Encounter Summary ---
:2000 Author Organization [facility] Address [address] [place] [address] Care Team Providers Name Role Phone Unavailable Primary Care Provider Unavailable Encounter Details Date Type Department Care Team Description 06/10/2016 Hospital Encounter HX [facility] FAMILYPRA Tona Talley M.D. [address] , [address] [place], [place] [address] (Wo rk) Social History Tobacco Use Types Packs/Day Years Used Date Smoking Tobacco: Never Assessed Sex Assigned at Date Recorded Not on file documented as of this encounter Last Filed Vital Signs Vital Sign Reading Time Taken Comments Blood Pressure - - Pulse - - Temperature - - Respiratory Rate - - Oxygen Saturation - - Inhaled Oxygen Concentration - - Weight 77.5 kg (170 lb 13.7 oz) 06/10/2016 8:06 AM CDT Height - - Body Mass Index - - documented in this encounter Progress Notes Karena Talley M.D. - 06/10/2016 8:53 AM CDT Clinic Full Note CHIEF COMPLAINT/REASON FOR VISIT small bumps on the face for several years. HISTORY OF PRESENT ILLNESS She has some bumps underneath her eye and eyebrow. More of them keep coming. They are white. Do notitch or bother her in anyway. She is here with her mom. MEDICATIONS Amlactin 12% topical cream, 1 gary, Topical, 2xDay, 6 refills clobetasol 0.05% topical ointment, 1 gary, 1-2 months to back of neck, Topical, 2xDay, 0 refills Ortho-Cyclen 0.25 mg-35 mcg oral tablet, 1 tab(s), PO, Daily, 1 refills ALLERGIES NKA PAST MEDICAL HISTORY Chronic Acanthosis Nigricans Molluscum Contagiosum Obesity NOS Polycystic Ovary Syndrome (PCOS) Historical No historical problems PROCEDURES/SURGICAL HISTORY None. SOCIAL HISTORY Date Time: 06/10/2016 08:06 Tobacco: Smoking Status: Never smoker Exposure: No Results Found Alcohol: Use: No Results Found Recreational Drugs: Use: No Results Found Type: No Results Found FAMILY HISTORY Grandmother (Maternal):Positive: Diabetes mellitus SYSTEMS REVIEW See HPI for pertinent positives- VITAL SIGNS T: 36.6 ??C (Core) HR: 64 RR: 16 BP: 102 / 64 WT: 77.5 kg PHYSICAL EXAMINATION General- No Acute Distress SKin-small white papules consistent with milia scattered above and below both eyes- IMPRESSION/REPORT/PLAN Milium Colloid Discussed benign nature of these skin lesions 1. To wash the make-up off your eyes, try Johnsons' baby shampoo--- pat dry. To wash the face, consider 10% glycolic acid wash - we sell this at the dermatology department at [facility] or on-line- KAVITHA BARBA Electronically Signed By: KARENA TALLEY MD On: 06/12/2016 12:25 PM Source: [facility] POWERCHART Document Id: [id number] documented in this encounter Miscellaneous Notes Miscellaneous - Karena Talley M.D. - 06/12/2016 12:25 PM CDT Ambulatory Patient Summary [address] [id number] Visit Information Name: HAYLEY SIBLEY [facility] Number: [id number] Current Date: 06/12/2016 12:25:06 Physicians Attending Provider: KARENA TALLEY MD Primary Care Provider: KARENA TALLEY MD HAYLEY SIBLEY has been given the following [...] Take Indications/Special Instructions/Comments/Notes for Patient Medication Changes/Routing ammonium lactate topical (Amlactin 12% topical cream) 1 gary, Topical, two times a day clobetasol topical (clobetasol 0.05% topical ointment) 1 gary, Topical, two times a day 1-2 months toback of neck norgestimate-ethinyl estradiol (Ortho-Cyclen 0.25 mg-35 mcg oral tablet) 1 Tablet(s), Oral, once a day Stop Taking the Following Medications: Medication list as of 06-12-16 12:25 Attention: If you have any medications at home that are not on this list, DO NOT take them until youcontact your provider for clarification. Give a copy of your medication list to your primary care provider. Update your medication list any time medications or doses are changed and carry your medication list at all times in case of emergency. Electronically Signed By: KARENA TALLEY MD Signed On:12-JUN-2016 12:24:57 Your Allergies & Intolerances Substance Reaction Symptoms Category Comments No Known Allergies Drug Your Problem List Problem Status Onset Comments Obesity NOS Active Polycystic Ovary Syndrome (PCOS) Active Acanthosis Nigricans Active Your Upcoming Appointments Date Time Location [...] if you dont have one. Go to [email or web address] and click on Create Your Account. Then, follow the directions to complete the online form. Youll be asked for your [facility] number which you can find at the top of this document. Your Goals/Additional instructions: Source: [facility] POWERCHART Document Id: [id number] Miscellaneous - Karena Talley M.D. - 06/12/2016 12:25 PM CDT Ambulatory Discharge Medication List [place] [id number] [facility] [address] [place], [place] [id number] Visit Information Name: HAYLEY SIBLEY [facility] Number: [id number] Visit Date: 06/12/2016 12:25:05 Attending Provider: KARENA TALLEY MD Primary Care Provider: KARENA TALLEY MD HAYLEY SIBLEY has been given the following list of medications: Your Medications It is important to take your medications as directed. Use a pill box or chart to help remind you to take your medications. Please let your doctor or nurse know if you have problems taking your medications. Medication/Strength How to Take Indications/Special Instructions/Comments/Notes for Patient Medication Changes/Routing ammonium lactate topical (Amlactin 12% topical cream) 1 gary, Topical, two times a day clobetasol topical (clobetasol 0.05% topical ointment) 1 gary, Topical, two times a day 1-2 months toback of neck norgestimate-ethinyl estradiol (Ortho-Cyclen 0.25 mg-35 mcg oral tablet) 1 Tablet(s), Oral, once a day Stop Taking the Following Medications: Medication list as of 06-12-16 12:25 Attention: If you have any medications at home that are not on this list, DO NOT take them until youcontact your provider for clarification. Give a copy of your medication list to your primary care provider. Update your medication list any time medications or doses are changed and carry your medication list at all times in case of emergency. Electronically Signed By: KARENA TALLEY MD Signed On:12-JUN-2016 12:24:57 Additional Information: 1. To wash the make-up off your eyes, try Johnsons' baby shampoo--- pat dry.To wash the face, consider 10% glycolic acid wash - we sell this at the dermatology department at [facility] or on-line- KAVITHA BARBA Source: [facility] POWERCHART Document Id: [id number] Miscellaneous - Tsering Shanks L.P.N. - 06/10/2016 8:06 AM CDT Pediatric Rejector Intake/History Pediatric Rejector Intake/History Entered On: 06/10/2016 8:08 CDT Performed On: 06/10/2016 8:06 CDT by TSERING SHANKS LPN Intake Chief Complaint : small bumps on the face for several years. Temperature Core : 36.6 DegC(Converted to: 97.9 DegF) Peripheral Pulse Rate : 64 /min Respiratory Rate : 16 /min Systolic Blood Pressure : 102 mmHg Diastolic Blood Pressure : 64 mmHg NIBP Mean : 77 mmHg BP Location : Left upper extremity Blood Pressure Cuff Size : Regular Actual Weight : 77.5 kg(Converted to: 170 lb 14 oz) Weight Source : Standing scale Dosing Weight Clinic : 77.5 kg TSERING SHANKS LPN - 06/10/2016 8:06 CDT General Info Languages : Togolese, Portuguese Is Patient Female and 13-50 no hysterectomy : Yes Status : Patient denies Are you ? : No TSERING SHANKS LPN - 06/10/2016 8:06 CDT Subjective Pain Symptoms : No TSERING SHANKS LPN - 06/10/2016 8:06 CDT Dependent Habits Smoking Status : Never smoker Tobacco 2A : No Tobacco Use/Currently Using : No Tobacco Use/Last 30 Days : No Tobacco Use/Last 12 months : No TSERING SHANKS LPN - 06/10/2016 8:06 CDT Source: [facility] POWERCHART Document Id: [id number] CDT!27 documented in this encounter Plan of Treatment Not on filedocumented as of this encounter Visit Diagnoses Not on filedocumented in this encounter
--- OUTSIDE RECORDS SUMMARY | 2022-05-02 15:42 | XMS_ITS | Encounter Summary ---
:2000 Author Organization [facility] Address [address] [place] [address] Care Team Providers Name Role Phone Unavailable Primary Care Provider Unavailable Encounter Details Date Type Department Care Team Description 04/04/2011 Hospital Encounter [facility]X [facility] Sa hawk Sousa M.D. [phone] (Wo rk) Social History Tobacco Use Types Packs/Day Years Used Date Smoking Tobacco: Never Assessed Sex Assigned at Date Recorded Not on file documented as of this encounter Last Filed Vital Signs Vital Sign Reading Time Taken Comments Blood Pressure - - Pulse - - Temperature - - Respiratory Rate - - Oxygen Saturation - - Inhaled Oxygen Concentration - - Weight 57.3 kg (126 lb 5.2 oz) 04/04/2011 3:12 PM CDT Height - - Body Mass Index - - documented in this encounter Progress Notes Angella Sousa M.D. - 04/04/2011 12:00 AM CDT [id number] CHIEF COMPLAINT/ REASON FOR VISIT Right foot and ankle pain HISTORY OF PRESENT ILLNESS Her right foot and ankle have been bothering her for about a week, ever since she stumbled while going down the steps carrying laundry. She did not actually fall but twisted her foot some in the process. Since then, she has complained repeatedly of pain in her right foot and lower ankle. No swelling or bruising. Sometimes she limps, favoring the right foot. She does not recall injuring it in the past. She has not been using any treatment such as ice or elevation. She is on no medications. CURRENT MEDICATIONS None ALLERGIES No known allergies VITAL SIGNS See EMR PHYSICAL EXAM GENERAL: No acute distress. SKIN: No rashes. No bruised or indurated areas, including the right foot and ankle. HEART: Normal S1 and split S2 without murmurs. LUNGS: Clear to auscultation. EXTREMITIES: Ankle dorsiflexion and plantar flexion normal in both ankles. No point tenderness over the right foot or ankle. No tenderness over the calcaneus or Achilles tendon. GAIT: Normal walking gait. However, she has trouble walking on her tiptoes, complaining that it hurts. She also has trouble achieving a full squat and doing the duck walk, again because of pain. X-ray of the right ankle is within normal limits. It is compared to an x-ray of the left ankle which is also within normal limits. IMPRESSION/REPORT/PLAN 1. Right foot sprain. Overall, the findings are mild. I expect gradual resolution. Recheck p.r.n. Apply ice. Elevate the ankle. SMB/glt Signed Angella Sousa M.D. Perl Programmer Electronically Signed By: ANGELLA SOUSA MD On: 04/06/2011 01:52 PM Source: [facility] MHSDOLBEYNONRADSYS Document Id: [id number] documented in this encounter Miscellaneous Notes Miscellaneous - Sammie Taylor L.P.N. - 04/04/2011 3:12 PM CDT Pediatric Raw Products Director Intake/History Pediatric Raw Products Director Intake/History Entered On: 04/04/2011 15:14 CDT Performed On: 04/04/2011 15:12 CDT by SAMMIE TAYLOR Intake Chief Complaint: c/o right leg pain for 1 week, interm., limps occas. when she gets up in the am Temperature Oral: 36.6C(Converted to: 97.9DegF) (LOW) Peripheral Pulse Rate: 88/min Respiratory Rate: 20/min Systolic Blood Pressure: 100mmHg Diastolic Blood Pressure: 62mmHg NIBP Mean: 75mmHg BP Location: Left upper extremity Heart Rhythm: Regular Actual Weight: 57.300kg(Converted to: 126lb 5oz) Weight Source: Standing scale Dosing Weight Clinic: 57.30kg SAMMIE TAYLOR - 04/04/2011 15:12 CDT Subjective Pain Symptoms: No SAMMIE TAYLOR - 04/04/2011 15:12 CDT Dependent Habits Tobacco Use/Currently Using: No SAMMIE TAYLOR - 04/04/2011 15:12 CDT Allergy Allergies (Active) NKA Estimated Onset Date: Unspecified ; Created By: ANGELLA SOUSA MD; Reaction Status: Active ; Category: Drug ; Substance: NKA ; Type: Allergy ; Updated By: ANGELLA SOUSA MD; Reviewed Date: 12/16/2009 13:11 CDT Source: [facility] [employer]4 Document Id: [id number] CDT!18 documented in this encounter Plan of Treatment Not on filedocumented as of this encounter Procedures Procedure Name Priority Date/Time Associated Diagnosis Comme nts DX ANKLE RIGHT 3+ Routine 04/04/2011 3:35 PM Resu lts for this VIEWS CDT procedure are i n the results section. DX ANKLE LEFT 3+ Routine 04/04/2011 3:35 PM Resul ts for this VIEWS CDT procedure are i n the results section. documented in this encounter Results DX Ankle Left 3+ Views (04/04/2011 3:35 PM CDT) Anatomical Region Laterality Modality Lower Extremity, Ankle Left Radiographic Imag ing Specimen (Source) Anatomical Collection Method Collection Time Re ceived Time Location / / Volume Laterality 04/04/2011 3:35 PM CDT Narrative 04/04/2011 3:55 PM CDT FINDINGS: The bones are intact and show no evidence of fracture or focal destruction. The joint spaces are maintained and no soft tissue abnormality is seen. ??The epiphyses are normal for age. ?? CONCLUSION: Negative left ankle Procedure Note Espinoza Vela M.D. / Provider, Micheal rodriguez M.D. - 02/02/2017 FINDINGS: The bones are intact and show no evidence of fracture or focal destruction. The joint spaces are maintained and no soft tissue abnormality is seen. The epiphyses are n ormal for age. CONCLUSION: Negative left ankle Barbara Lawrence.T.(R), R.TJustine(R)(M) IMG DIAGNOSTIC IMAGING PROCEDURES DX Ankle Right 3+ Views (04/04/2011 3:35 PM CDT) Anatomical Region Laterality Modality Lower Extremity, Ankle Right Radiographic Imag ing Specimen (Source) Anatomical Collection Method Collection Time Re ceived Time Location / / Volume Laterality 04/04/2011 3:35 PM CDT Narrative 04/04/2011 3:55 PM CDT FINDINGS: The bones are intact and show no evidence of fracture or focal destruction. The joint spaces are maintained and no soft tissue abnormality is seen. ??The epiphyses are normal for age. ?? CONCLUSION: Negative right ankle Procedure Note Espinoza Vela M.D. / ProviderMichael M.D. - 02/02/2017 FINDINGS: The bones are intact and show no evidence of fracture or focal destruction. The joint spaces are maintained and no soft tissue abnormality is seen. The epiphyses are n ormal for age. CONCLUSION: Negative right ankle Barbara Lawrence.T.(R), R.T.(R)(M) IMG DIAGNOSTIC IMAGING PROCEDURES documented in this encounter Visit Diagnoses Not on filedocumented in this encounter
--- OUTSIDE RECORDS SUMMARY | 2022-05-02 15:42 | XMS_ITS | Encounter Summary ---
:[address] [facility] Address [address] [place] [address] Care Team Providers Name Role Phone Karen Zaman APRN, C.N.P. Primary Care Provider [phone] Reason for Visit Reason Onset Date Comments Outpatient COVID-19 Testing 04/27/2020 Encounter Details Date Type Department Care Team Description 04/27/2020 External Outreach Department of Ethan Marie Infect ion Upper Internal Medicine in J, D.O. Respiratory (Primary [place], [place] [address] Dx) [address] [place] [phone] Social History Tobacco Use Types Packs/Day Years Used Date Smoking Tobacco: Never Smokeless Tobacco: Never Alcohol Use Standard Drinks/Week Comments No 0 (1 standard drink = 0.6 oz pure alcoho l) Sex Assigned at Date Recorded Not on file documented as of this encounter Progress Notes Justine Alberto RBismark. - 04/27/2020 12:58 PM CDT Encounter created for the drive-through COVID-19 testing. documented in this encounter Plan of Treatment Not on filedocumented as of this encounter Procedures Procedure Name Priority Date/Time Associated Diagnosis Comme nts SARS CORONAVIRUS-2, Routine 04/27/2020 1:11 PM Re sults for this PCR CDT procedure are i n the results section. documented in this encounter Results SARS Coronavirus-2, PCR (04/27/2020 1:11 PM CDT) [facility] Method Time Signature SARS Nasopharynx 04/29/2020 [facility] Coronavirus-2 12:00 AM CDT Source SARS Undetected Undetected 04/29/2020 [facility]TL Coronavirus-2 12:00 AM CDT , PCR Comment: SARS-CoV-2 RNA absent. This result does not rule out COVID-19 in the patient, as the sensitivity of the test depends o n the timing of the specimen collection and quality of the specimen. Result should be correlated with patient's history and clinical presentat ion. ----ADDITIONAL INFORMATION---- This test was developed and its performa nce characteristics determined by [facility] in a manner co nsistent with CLIA requirements. Independent review by the U.S. Food and Drug Administration is pending. Visit the CDC website: https://www.cdc.gov/coronavirus/ ?? for the most recent guidelines on Sharif virus testing. Fact Sheet for Healthcare Providers: (https://www.Let/it-Fat Spaniel Technologiesil es/ Provider_Fact_Sheet_for_[facility]_COVI D-19.pdf) Fact Sheet for Patients: (https://www.Let/it-mmfil es/ Patient_Fact_Sheet_for_COVID-19.pdf) Specimen Anatomical Collection Method Collection Time Receive d Time (Source) Location / / Volume Laterality Varies 04/27/2020 1:11 PM 0 2:53 CDT PM CDT Ethan Marie D.O. LAB MICROBIOLOGY - GENERAL O RDERABLES Performing Organization Address City/State/ZIP Code Phon e Number [facility] - [address] [place], [place] [address] [place] [address] Laboratories-[facility] [address] documented in this encounter Visit Diagnoses Diagnosis Infection Upper Respiratory - Primary documented in this encounter Additional Health Concerns Infection Onset Date Last Indicated Resolved Time COVID19 Pending 04/27/2020 04/27/2020 04/28/2020 7:22 AM CDT documented as of this encounter Care Teams Trackless Trolley Driver Relationship Specialty Start Date End Date Karen Zaman, BART, C.N.P. PCP - General 02/23/17 05/11/21 [address], [place] [address] documented as of this encounter
--- OUTSIDE RECORDS SUMMARY | 2022-05-02 15:42 | XMS_ITS | Encounter Summary ---
:2000 Author Organization [facility] Address [address] [place] [address] Care Team Providers Name Role Phone Unavailable Primary Care Provider Unavailable Encounter Details Date Type Department Care Team Description 05/31/2011 Hospital Encounter HX [facility] Charly Pino M.D. [address] [place], [place] [address] (Wo rk) Social History Tobacco Use Types Packs/Day Years Used Date Smoking Tobacco: Never Assessed Sex Assigned at Date Recorded Not on file documented as of this encounter Last Filed Vital Signs Vital Sign Reading Time Taken Comments Blood Pressure - - Pulse - - Temperature - - Respiratory Rate - - Oxygen Saturation - - Inhaled Oxygen Concentration - - Weight 59.2 kg (130 lb 8.2 oz) 05/31/2011 1:29 PM CDT Height - - Body Mass Index - - documented in this encounter Progress Notes Sea Pino M.D. - 05/31/2011 12:00 AM CDT [id number] CHIEF COMPLAINT/ REASON FOR VISIT Sore throat HISTORY OF PRESENT ILLNESS 11-year-old female here with her mother. Hayley began with illness yesterday. Her main complaint is sore throat. However, she has had some nasal congestion and cough as well. No fevers. CURRENT MEDICATIONS None ALLERGIES No known drug allergies. VITAL SIGNS WEIGHT: 59.2 kg TEMPERATURE: 36.8 HEART RATE: 80 RESPIRATORY RATE: 22 BLOOD PRESSURE: 98/54 PHYSICAL EXAM GENERAL: Comfortable, in no distress. SKIN: No truncal rash. EYES: No injection or drainage. ENT: Ears: Tympanic membranes wagner and flat bilaterally. Nose with mild congestion. Mouth: Mucous membranes moist. Posterior pharynx with mild erythema. Tonsils 2+. No exudate. LYMPH NODES: No significant cervical lymphadenopathy. HEART: Regular rate and rhythm, S1-S2, without murmurs. LUNGS: Lungs are clear to auscultation bilaterally. IMPRESSION/REPORT/PLAN Sore throat. Likely secondary to viral illness. We did check rapid strep testing today which was negative. A backup throat culture is also negative. Recommend supportive cares. This will take 10 to 14 days to fully resolve. KSL/glt Signed Sea Pino M.D. Heavy Equipment Engine Mechanic Electronically Signed By: SEA PINO MD On: 06/06/2011 10:10 am Source: [facility] MHSDOLBEYNONRADSYS Document Id: [id number] documented in this encounter Miscellaneous Notes Miscellaneous - Sea Pino M.D. - 05/31/2011 2:12 PM CDT Ambulatory Patient Summary [address] [address] Visit Information Name: HAYLEY SIBLEY Current Date: 05/31/2011 14:12:12 Primary Care Provider: TUCKER GERMAIN MD Your Medications Here is a list of your medications. It is important to take your medications as directed. Use a pillbox or chart to help remind you to take your medications. Please let your doctor or nurse know if you have problems taking your medications. Medication/Strength Dose Route Frequency Indications/Special Instructions/Comments No Medications found Your Allergies & Intolerances Substance Reaction Symptoms Category Comments NKA Drug Your Problem List Problem Status Onset Comments Molluscum Contagiosum Inactive 2006 Your Recommendations We want to make sure you get the tests, immunizations, and guidance you need to stay healthy. Here is a customized list of recommendations, based on information we have in your medical record. Your doctor may have additional recommendations for you, based on your personal medical history and risk factors. You can help us by calling us to make an appointment when you are due for your tests. Additional information regarding recommendations: Test/Treatment Last Done Next Due Additional Information No Health Maintenance records were found Your Upcoming Appointments Date Time Location Reason Provider No Appointments found Your Goals/Additional instructions: Source: [facility] [employer] Bee[employer] Document Id: [id number] Electronically signed by Conversion, [facility] Grain Scooper [id number] at 02/12/2017 2:22 PM CDT Terrell - Sea Pino M.D. - 05/31/2011 2:12 PM CDT Ambulatory Depart Summary [address] [address] Visit Information Name: HAYLEY SIBLEY Current Date: 05/31/2011 14:12:12 Primary Care Provider: TUCKER GERMAIN MD TOÑITO HAYLEY has been given the following list of medications: Your Medications It is important to take your medications as directed. Use a pill box or chart to help remind you to take your medications. Please let your doctor or nurse know if you have problems taking your medications. Medication/Strength Dose Route Frequency Indications/Special Instructions/Comments No Medications found Additional Information: Yes - Current list of reconciled medications is provided and explained to the patient and/or family, guardian/caregiver. Source: [facility] [employer] Document Id: [id number] Electronically signed by Conversion, [facility] Grain Scooper [id number] at 02/12/2017 2:22 PM CDT Terrell - Aliya Morgan - 05/31/2011 1:29 PM CDT Pediatric Content Developer Intake/History Pediatric Content Developer Intake/History Entered On: 05/31/2011 13:31 CDT Performed On: 05/31/2011 13:29 CDT by ALIYA DUMONT Intake Chief Complaint: c/o sore throat, cough started yesterday Temperature Core: 36.8C(Converted to: 98.2DegF) Apical Heart Rate: 80/min Respiratory Rate: 22/min Systolic Blood Pressure: 98mmHg Diastolic Blood Pressure: 54mmHg NIBP Mean: 69mmHg BP Location: Left upper extremity Actual Weight: 59.200kg(Converted to: 130lb 8oz) Weight Source: Standing scale Dosing Weight Clinic: 59.20kg ALIYA DUMONT - 05/31/2011 13:29 CDT Subjective Pain Symptoms: No ALIYA DUMONT - 05/31/2011 13:29 CDT Dependent Habits Tobacco Use/Currently Using: No ALIYA DUMONT - 05/31/2011 13:29 CDT Allergy Allergies (Active) NKA Estimated Onset Date: Unspecified ; Created By: TUCKER GERMAIN MD; Reaction Status: Active ; Category: Drug ; Substance: NKA ; Type: Allergy ; Updated By: TUCKER GERMAIN MD; Reviewed Date: 05/31/2011 13:28 CDT Source: [employer] Document Id: [id number] CDT!17 documented in this encounter Plan of Treatment Not on filedocumented as of this encounter Visit Diagnoses Not on filedocumented in this encounter
--- OUTSIDE RECORDS SUMMARY | 2022-05-02 15:42 | XMS_ITS | Encounter Summary ---
:2000 Author Organization [facility] Address [address] [place] [address] Care Team Providers Name Role Phone Unavailable Primary Care Provider Unavailable Encounter Details Date Type Department Care Team Description 06/10/2010 Hospital Encounter H[facility] Sa hawk Sousa M.D. [phone] (Wo rk) Social History Tobacco Use Types Packs/Day Years Used Date Smoking Tobacco: Never Assessed Sex Assigned at Date Recorded Not on file documented as of this encounter Last Filed Vital Signs Vital Sign Reading Time Taken Comments Blood Pressure - - Pulse - - Temperature - - Respiratory Rate - - Oxygen Saturation - - Inhaled Oxygen Concentration - - Weight 49 kg (108 lb 0.4 oz) 06/10/2010 1:04 PM CDT Height 145 cm (4' 9.09) 06/10/2010 1:04 PM CDT Body Mass Index 23.31 06/10/2010 1:04 PM CDT Body Mass Index Percentile 93.08 % 06/10/2010 1:04 PM CD T Growth Chart: CDC (Girls, 2-20 Years) documented in this encounter H&P Notes Angella Sousa M.D. - 06/10/2010 12:00 AM CDT [id number] CHIEF COMPLAINT/ REASON FOR VISIT This 10-year-old girl is here for a physical exam. She needs medical clearance prior to sports participation. 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 Though she is not yet enrolled in sports, her mother is encouraging Otilia to do so. Otilia is sedentary in her habits and her BMI at 23 is at the 92nd percentile for age. This is a anna choice, as Otilia needs to increase her physical activity level and incorporate more rigorous activity into her daily routine. Otilia says she may go out for volleyball or swimming, though I note the swimming season for girls has already started. Her general health is good. She is not frequently ill. She does not miss school frequently. She is premenarchal but has robust pubertal development. CURRENT MEDICATIONS None ALLERGIES No known allergies. SYSTEMS REVIEW Refer to the [facility] physical exam form for this. Review of systems is negative. PAST MEDICAL/SURGICAL HISTORY Negative. SOCIAL HISTORY She lives with her mother and older brother. Her dad has never been in the picture. Her mother was incarcerated earlier this year. She is trying to reestablish a healthy lifestyle and work ethic in her children. Otilia denies use of alcohol, tobacco, or illegal drugs. She is an adequate student but not a great student. She is not enthusiastic about school. FAMILY HISTORY No family history of sudden at a young age. No history of identified heart disease in relatives less than age 50. Some family members with asthma, namely her brother who has mild intermittent asthma. VITAL SIGNS See EMR PHYSICAL EXAM GENERAL: She is chubby. For details of the exam, refer to the [facility] physical exam clearance form, which is scanned into the EMR. Breast development is that of a Tre three female. Exam is within normal limits. IMPRESSION/REPORT/PLAN 1. Healthy adolescent female. 2. Age appropriate anticipatory guidance. 3. Psychosocial stresses, discussed some today. A focus on education and regular physical activity will help Otilia to grow and develop in a healthy manner. 4. She should return yearly for a full physical exam. 5. Immunizations reviewed. They are up to date; she has received required vaccines through public health nursing. SMB/jo annt Signed Angella Sousa M.D. Bindery Machine Feeder Offbearer Electronically Signed By:ANGELLA SOUSA MD On 06/23/2010 08:47 AM Source: [facility] MHSDOLBEYNONRADSYS Document Id: [id number] documented in this encounter Miscellaneous Notes Miscellaneous - Sammie Taylor L.PJustineN. - 06/10/2010 1:04 PM CDT Pediatric Outside Plant Cable Engineer Intake/History Pediatric Outside Plant Cable Engineer Intake/History Entered On: 06/10/2010 13:12 CDT Performed On: 06/10/2010 13:04 CDT by SAMMIE TAYLOR Intake Chief Complaint: sports physical Temperature Oral: 36.2C(Converted to: 97.2DegF) (<LLOW) Peripheral Pulse Rate: 84/min Respiratory Rate: 20/min Systolic Blood Pressure: 100mmHg Diastolic Blood Pressure: 60mmHg NIBP Mean: 73mmHg BP Location: Left upper extremity Heart Rhythm: Regular Height: 145.00cm(Converted to: 4ft 9in, 57.09in) Actual Weight: 49.000kg(Converted to: 108lb 0oz) Weight Source: Standing scale Dosing Weight Clinic: 49.00kg Clinic BSA: 1.40 Body Mass Index: 23kg/m2 SAMMIE TAYLOR - 06/10/2010 13:04 CDT Subjective Pain Symptoms: No SAMMIE TAYLOR - 06/10/2010 13:04 CDT Dependent Habits Tobacco Use/Currently Using: No SAMMIE TAYLOR - 06/10/2010 13:04 CDT Allergy Allergies (Active) NKA Estimated Onset Date: Unspecified ; Created By: ANGELLA SOUSA MD; Reaction Status: Active ; Category: Drug ; Substance: NKA ; Type: Allergy ; Updated By: ANGELLA SOUSA MD; Reviewed Date: 12/16/2009 13:11 CDT Source: [facility] POWERCHART Document Id: [id number] CDT!21 documented in this encounter Plan of Treatment Not on filedocumented as of this encounter Visit Diagnoses Not on filedocumented in this encounter
--- OUTSIDE RECORDS SUMMARY | 2022-05-02 15:42 | XMS_ITS | Encounter Summary ---
:1999 Author Organization [facility] Address [address] [place] [address] Care Team Providers Name Role Phone Karen Zaman APRN, C.N.P. Primary Care Provider [phone] Encounter Details Date Type Department Care Team Description 12/29/2020 Orders Only [facility] Sa hawk Coyle M.D. [address] [place], [place] [phone] (Wo rk) Social History Tobacco Use Types [...] Diagnoses Not on filedocumented in this encounter Care Teams Pad Cutter Relationship Specialty Start Date End Date Karen Zaman APRN, C.N.P. PCP - General 02/23/17 05/11/21 [address] [place] [phone] documented as of this encounter
--- OUTSIDE RECORDS SUMMARY | 2022-05-02 15:42 | XMS_ITS | Encounter Summary ---
:2000 Author Organization [facility] Address [address] [place] [address] Care Team Providers Name Role Phone Karen Zaman APRN, C.N.P. Primary Care Provider [phone] Reason for Visit Reason Comments Vomiting Encounter Details Date Type Department Care Team Description 08/19/2018 - Emergency [facility] Vomiting (Primary Dx) 08/20/2018 [address] [place] [address] Social History Tobacco Use Types Packs/Day Years Used Date Smoking Tobacco: Never Smokeless Tobacco: Never Alcohol Use Standard Drinks/Week Comments No 0 (1 standard drink = 0.6 oz pure alcoho l) Sex Assigned at Date Recorded Not on file documented as of this encounter Medications at Time of Discharge Medication Sig Dispensed Refills Start Date End Date norgestimate-ethinyl Take 1 tablet by 84 tablet 3 03/201 8 estradiol (ORTHO mouth daily. TRI-CYCLEN LO, 28,) 0.18/0.215/0.25 mg-25 mcg per tablet documented as of this encounter Plan of Treatment Not on filedocumented as of this encounter Visit Diagnoses Diagnosis Vomiting - Primary documented in this encounter Care Teams Director Of Anesthesia Services Relationship Specialty Start Date End Date Karen Zaman APRN, C.N.P. PCP - General 02/23/17 05/11/21 [address] [address] documented as of this encounter
--- OUTSIDE RECORDS SUMMARY | 2022-05-02 15:42 | XMS_ITS | Encounter Summary ---
:1999 Author Organization [facility] Address [address] [place] [address] Care Team Providers Name Role Phone Karen Zaman APRN, C.N.P. Primary Care Provider [phone] Encounter Details Date Type Department Care Team Description 06/02/2020 Orders Only [facility] PCP [facility] MNT Karen Zaman, Vidal RAMON, C.N.P. [address] [place], [place] [phone] (Wo rk) Social History [...] on filedocumented in this encounter Care Teams Elementary School Art Teacher Relationship Specialty Start Date End Date Karen Zaman APRN, C.N.P. PCP - General 02/23/17 05/11/21 [address] [place] [address] documented as of this encounter
--- OUTSIDE RECORDS SUMMARY | 2022-05-02 15:42 | XMS_ITS | Encounter Summary ---
:2000 Author Organization [facility] Address [address] [place] [address] Care Team Providers Name Role Phone Karen Zaman APRN, C.N.PJustine Primary Care Provider [phone] Reason for Visit Reason Onset Date Comments Outpatient COVID-19 Testing 07/20/2020 Encounter Details Date Type Department Care Team Description 07/20/2020 External Outreach Department of Ethan Marie Infect ion Upper Internal Medicine in J, D.O. Respiratory (Primary [place], [place] [address] Dx) [address] [place] [id number] Social History Tobacco Use Types Packs/Day Years Used Date Smoking Tobacco: Never Smokeless Tobacco: Never Alcohol Use Standard Drinks/Week Comments No 0 (1 standard drink = 0.6 oz pure alcoho l) Sex Assigned at Date Recorded Not on file documented as of this encounter Progress Notes Justine Alberto RBismark. - 07/20/2020 2:53 PM CST Encounter created for the drive-through COVID-19 testing. OR DB2 SYSTEMS PROGRAMMER documented in this encounter Miscellaneous Notes Addendum Note - Ely Rodríguez, RJustineMJustineAJustine - 07/20/2020 2:53 PM SENIOR DB2 SYSTEMS PROGRAMMER Addended by: ELY RODRÍGUEZ on: 07/21/2020 07:05 PM Modules accepted: Orders OR DB2 SYSTEMS PROGRAMMER documented in this encounter Plan of Treatment Not on filedocumented as of this encounter Visit Diagnoses Diagnosis Infection Upper Respiratory - Primary documented in this encounter Additional Health Concerns Infection Onset Date Last Indicated Resolved Time COVID19 Pending 07/20/2020 07/20/2020 07/21/2020 7:05 PM SENIOR DB2 SYSTEMS PROGRAMMER documented as of this encounter Care Teams Garment Alteration Examiner Relationship Specialty Start Date End Date Karen Zaman, BART, C.N.P. PCP - General 02/23/17 05/11/21 [address] [address] documented as of this encounter
--- OUTSIDE RECORDS SUMMARY | 2022-05-02 15:42 | XMS_ITS | Encounter Summary ---
:2000 Author Organization [facility] Address [address] [place] [address] Care Team Providers Name Role Phone Unavailable Primary Care Provider Unavailable Encounter Details Date Type Department Care Team Description 03/07/[address] [facility] Sa hawk Sousa M.D. [phone] (Wo rk) Social History Tobacco Use Types Packs/Day Years Used Date Smoking Tobacco: Never Assessed Sex Assigned at Date Recorded Not on file documented as of this encounter Last Filed Vital Signs Vital Sign Reading Time Taken Comments Blood Pressure - - Pulse - - Temperature - - Respiratory Rate - - Oxygen Saturation - - Inhaled Oxygen Concentration - - Weight 69 kg (152 lb 1.9 oz) 03/07/2013 4:20 PM CDT Height 158 cm (5' 2.21) 03/07/2013 4:20 PM CDT Body Mass Index 27.64 03/07/2013 4:20 PM CDT Body Mass Index Percentile 95.54 % 03/07/2013 4:20 PM CD T Growth Chart: CDC (Girls, 2-20 Years) documented in this encounter Progress Notes Angella Sousa M.D. - 03/07/2013 4:14 PM CDT [id number] CHIEF COMPLAINT/REASON FOR VISIT Secondary amenorrhea. In addition, she has a foreign body in her right ear canal. HISTORY OF PRESENT ILLNESS Menarche was in Summer 2011. Her periods have never been regular and her last period was approximately 3 months ago. She is not sure of the date, as she does not keep definite track of each period. However, she says it was about 3 months ago and that she has only 1 day of menstrual bleeding per period. She is overweight and mother wished to discuss this. She asked me what a healthy weight would be forHayley. Hayley has gained weight steadily and currently her weight is at the 93rd percentile for age at 152 pounds. Her height, at 62 inches, is at the 36th percentile for age. She says she does not drink soda pop or drink sugary beverages. She does drink low-calorie products such as Crystal Light. She loves to bake, but insists that her brother eats the things she bakes. She says she does not snack much. She does not eat chips much; they do not have them in the home. In short, she cannot come up withany way that she can practically cut calories. She likes to be outside with her friends and they go o n walks. She states that she does not have a boyfriend, has never had intercourse, and she understands what Imean when I ask that. The exam shows of foreign body in the right ear canal, but she is not aware of inserting anything inher ear canal. CURRENT MEDICATIONS See EMR. ALLERGIES See EMR. VITAL SIGNS See EMR. PHYSICAL EXAM GENERAL: She is obese. She is casually dressed. Hair is neatly groomed. SKIN: No rashes. ENT: There is a foreign body, it looks like a piece of blue plastic in the right ear canal. Both tympanic membranes normal. Pharynx nonerythematous. LYMPH NODES: No anterior or posterior cervical lymph node enlargement. HEART: Normal S1 and physiologically split S2 without murmurs. LUNGS: Clear to auscultation. ABDOMEN: Obese. No hepatosplenomegaly or masses. Nontender. BREASTS: Not examined. IMPRESSION/REPORT/PLAN 1. Secondary amenorrhea. As she has never had intercourse and states firmly that she has no intentions on having intercourse in the foreseeable future, I do not have to worry about her being . She has secondary amenorrhea because her hormonal cycling is not yet mature. Gradually her periods will become more regular. Often times there is no obvious explanation. 2. Obesity. A good goal weight for her would be 144 pounds rather than her current 152 pounds. She can lose weight if she makes a commitment to cutting out 250 calories daily from her current intake; in 2 weeks she will be able to lose a pound. She should also embark on regular exercise and a goal of 10,000 steps per day as recorded by a pedometer. 3. Warm water is used to cleanse the right ear canal and a small piece of blue plastic is removed. It is likely a piece of a head phone ear piece. Detailed evaluation, 25 minutes, with ear lavage. Angella Sousa M.D./glt Electronically Signed By: ANGELLA SOUSA MD On: 03/11/2013 01:00 PM Source: [facility] MHSDOLBEYNONRADSYS Document Id: [id number] documented in this encounter Miscellaneous Notes Miscellaneous - Angella Sousa M.D. - 03/07/2013 4:55 PM CDT Ambulatory Depart Summary [address] [address] Visit Information Name: HAYLEY SIBLEY [facility] Number: [id number] Visit Date: 03/07/2013 16:55:54 Attending Provider: ANGELLA SOUSA MD Primary Care Provider: ANGELLA SOUSA MD HAYLEY SIBLEY has been given the following list of medications: Your Medications It is important to take your medications as directed. Use a pill box or chart to help remind you to take your medications. Please let your doctor or nurse know if you have problems taking your medications. Medication/Strength Dose Route Frequency Indications/Special Instructions/Comments/Notes No Medications found Attention: If you have any medications at home that are not on this list, DO NOT take them until youcontact your provider for clarification. Additional Information: Source: [facility] POWERCHART Document Id: [id number] Miscellaneous - Angella Sousa M.D. - 03/07/2013 4:55 PM CDT Ambulatory Patient Summary [address] [place] [address] Visit Information Name: HAYLEY SIBLEY [facility] Number: [id number] Current Date: 03/07/2013 16:55:54 Physicians Attending Provider: ANGELLA SOUSA MD Primary Care Provider: ANGELLA SOUSA MD Your Medications Here is a list of your medications. It is important to take your medications as directed. Use a pillbox or chart to help remind you to take your medications. Please let your doctor or nurse know if you have problems taking your medications. Medication/Strength Dose Route Frequency Indications/Special Instructions/Comments/Notes No Medications found Attention: If you have any medications at home that are not on this list, DO NOT take them until youcontact your provider for clarification. Your Allergies & Intolerances Substance Reaction Symptoms Category Comments No Known Allergies Drug Your Problem List Problem Status Onset Comments Obesity NOS Active Your Upcoming Appointments Date Time Location Reason Provider No Appointments found Your Goals/Additional instructions: -Right now your weight is 152 pounds. That is high for your height. A healhier weight for you would be 144 pounds as a start. Something that really helps is to buy apedometer and aim to walk 10,000 steps per day. The best way to lose weight is to change your diet some and also increase your activity level. If you can cut out 250 calories each and every day and also increase your activity, you will be able to lose 2 pounds in two weeks. If you don't get your period by the end of April, come back. Source: [facility] POWERCHART Document Id: [id number] Miscellaneous - Sammie Taylor LJustineP.N. - 03/07/2013 4:20 PM CDT Pediatric Hadoop Developer Intake/History Pediatric Hadoop Developer Intake/History Entered On: 03/07/2013 16:24 CDT Performed On: 03/07/2013 16:20 CDT by SAMMIE TAYLOR Intake Chief Complaint : menses irregular, last time was 3 months ago Temperature Core : 36.6 DegC(Converted to: 97.9 DegF) Peripheral Pulse Rate : 72 /min Respiratory Rate : 16 /min Heart Rhythm : Regular Systolic Blood Pressure : 100 mmHg Diastolic Blood Pressure : 58 mmHg NIBP Mean : 72 mmHg BP Location : Left upper extremity Blood Pressure Cuff Size : Regular Height : 158 cm(Converted to: 5 ft 2 inch(es), 62.20 inch(es)) Actual Weight : 69 kg(Converted to: 152 lb 2 oz) Weight Source : Standing scale Dosing Weight Clinic : 69 kg Clinic BSA : 1.74 Body Mass Index : 27.64 kg/m2 SAMMIE TAYLOR - 03/07/2013 16:20 CDT General Info Languages : Singaporean SAMMIE TAYLOR - 03/07/2013 16:20 CDT Subjective Pain Symptoms : No SAMMIE TAYLOR - 03/07/2013 16:20 CDT Dependent Habits Tobacco Use/Currently Using : No Smoking Status : Never smoker SAMMIE TAYLOR - 03/07/2013 16:20 CDT [facility] Document Id: [id number] CDT!25 documented in this encounter Plan of Treatment Not on filedocumented as of this encounter Visit Diagnoses Not on filedocumented in this encounter
--- OUTSIDE RECORDS SUMMARY | 2022-05-02 15:42 | XMS_ITS | Encounter Summary ---
:2000 Author Organization [facility] Address [address] [place] [address] Care Team Providers Name Role Phone Unavailable Primary Care Provider Unavailable Encounter Details Date Type Department Care Team Description 01/14/2009 Hospital Encounter HX NO MAPPING Cristine Sousa M.D. [phone] (Wo rk) Social History Tobacco Use Types Packs/Day Years Used Date Smoking Tobacco: Never Assessed Sex Assigned at Date Recorded Not on file documented as of this encounter Plan of Treatment Not on filedocumented as of this encounter Procedures Procedure Name Priority Date/Time Associated Diagnosis Comme nts DX ABDOMEN SUPINE Routine 01/14/2009 4:14 PM Resu lts for this WITH UPRIGHT OR CDT procedure ar e in DECUBITUS 2 VIEWS the result s section. documented in this encounter Results DX Abdomen Supine with Upright or Decubitus 2 Views (01/14/2009 4:14 PM CDT) Anatomical Region Laterality Modality Abdomen Right Radiographic Imaging Specimen (Source) Anatomical Collection Method Collection Time Re ceived Time Location / / Volume Laterality 01/14/2009 4:14 PM CDT Impressions 01/14/2009 4:14 PM CDT Nonspecific bowel gas pattern, no obstruction or free air. Narrative 01/14/2009 4:14 PM CDT Originally Signed By UNKNOWN, PERSONNEL Reason for exam: VOMITING HISTORY: Vomiting. ?? COMPARISON: None. ?? FINDINGS: Bowel gas pattern is nonspecif ic gas and stool in nondilated colon. No bowel dilatation, significant air-fluid levels, or free air is identified. No abnormal masses or galo picious calcifications are identified. ? Procedure Note Provider, Leslie Davis - 02/14/2017F ormatting of this note might be different from the original. Originally Signed By UNKNOWN, PERSONNEL Reason for exam: VOMITING HISTORY: Vomiting. COMPARISON: None. FINDINGS: Bowel gas pattern is nonspecif ic gas and stool in nondilated colon. No bowel dilatation, significant air-fluid levels, or free air is identified. No abnormal masses or galo picious calcifications are identified. IMPRESSION: Nonspecific bowel gas patter n, no obstruction or free air. Historical Provider IMG DIAGNOSTIC IMAGING PROCE DURES documented in this encounter Visit Diagnoses Not on filedocumented in this encounter
--- OUTSIDE RECORDS SUMMARY | 2022-05-02 15:42 | XMS_ITS | Encounter Summary ---
:2000 Author Organization [facility] Address [address] [place] [address] Care Team Providers Name Role Phone Unavailable Primary Care Provider Unavailable Encounter Details Date Type Department Care Team Description 11/14/2011 Hospital Encounter HX [facility] Sa hawk Sousa M.D. [phone] (Wo rk) Social History Tobacco Use Types Packs/Day Years Used Date Smoking Tobacco: Never Assessed Sex Assigned at Date Recorded Not on file documented as of this encounter Last Filed Vital Signs Vital Sign Reading Time Taken Comments Blood Pressure - - Pulse - - Temperature - - Respiratory Rate - - Oxygen Saturation - - Inhaled Oxygen Concentration - - Weight 65 kg (143 lb 4.8 oz) 11/14/2011 4:06 PM WING SCORER Height 156.5 cm (5' 1.61) 11/14/2011 4:06 PM WING SCORER Body Mass Index 26.54 11/14/2011 4:06 PM WING SCORER Body Mass Index Percentile 95.78 % 11/14/2011 4:06 PM CS T Growth Chart: CDC (Girls, 2-20 Years) documented in this encounter Progress Notes Angella Sousa M.D. - 11/14/2011 12:00 AM CST [id number] CHIEF COMPLAINT/ REASON FOR VISIT Left upper quadrant pain, does not want to run in y-ed. HISTORY OF PRESENT ILLNESS She complains of pain and points to her left upper quadrant. She also complains of loose stools. Running is difficult for her and that makes the pain worse. She reports that she has normal bowel movements without constipation. She is premenarchal. She denies dysuria. She also complains that she toes out, like a duck when she walks, and that people make fun of her as a result. She offers this as an explanation for feeling isolated. However, Otilia has a history of feeling isolated and complaining that other people do not like her, mistreat her, or bully her. She has trouble making friends. We have discussed seeing a mental health therapist for these complaints in the past, but there has been no follow through. We spent some time discussing her weight. Although she is at first hesitant, she then acknowledges that she is overweight and she would like to be able to wear a size 10 dress. Some of her eating habits are discussed and some potential changes suggested. For each of these, Otilia or her mother have a reason why it will not work. For example, Otilia says she likes to walk but that mother will not let her walk very far; [place] and mom worries about her safety. At other times, mom is at work and does not want Otilia to be outside the trailer homes, again citing safety as a concern. Please refer to EMR for vital signs, medications, and allergies. PHYSICAL EXAM GENERAL: She is obese. BMI, at 26.5, is at the 96th percentile for age. Her dress is sloppy and even her grooming is mediocre. SKIN: Some acne, small comedones and small pimples. ENT: Normal tympanic membranes. Nasal respirations without difficulty. Pharynx nonerythematous. THYROID: No nodules. Not enlarged. HEART: Normal S1. Physiologically split S2. No murmurs. LUNGS: Clear to auscultation. Good air exchange. ABDOMEN: Obese. No costovertebral angle tenderness. No localized tenderness. No hepatosplenomegaly or masses. GAIT: Her walking and running gait are observed. She has a positive 10 degree foot progression angle. When asked to walk in a more normal fashion, she is able to do so, when concentrating. When she runs, she does not picker and sorter load and unload her feet. She runs flat footed. She puts very little effort into her running. LABORATORY Urinalysis is within normal limits. Urine cultures sent. IMPRESSION/REPORT/PLAN 1. Abdominal pain. This seems to be most bothersome when she is asked to run. I think it represents a simple stitch from being deconditioned. 2. She is obese. Although she lists weight loss as an important goal, at this point she does not appear ready to make changes in her diet and exercise habits. Both Otilia and her mother express a sense of futility. 3. Chronic dysthymia and negative mood. I have recommended that she return for a physical exam. Her musculoskeletal exam will be repeated in greater detail. I will also recommend that she see a mental health counselor. Detailed evaluation, 25 minutes. SMB/glt Signed Angella Sousa M.D. Banquet Captain Electronically Signed By: ANGELLA SOUSA MD On: 11/18/2011 03:33 PM Source: [facility] MHSDOLBEYNONRADSYS Document Id: [id number] SCORER documented in this encounter Miscellaneous Notes Miscellaneous - Sammie Taylor, L.P.N. - 11/14/2011 4:06 PM CST Pediatric Checking Department Supervisor Intake/History Pediatric Checking Department Supervisor Intake/History Entered On: 11/14/2011 16:08 WING SCORER Performed On: 11/14/2011 16:06 WING SCORER by SAMMIE TAYLOR Intake Chief Complaint : c/o left sided abd. pain for 1 week, frequency, and back pain now, no fever Temperature Core : 36.6C(Converted to: 97.9DegF) Peripheral Pulse Rate : 68/min Respiratory Rate : 16/min Heart Rhythm : Regular Systolic Blood Pressure : 110mmHg Diastolic Blood Pressure : 62mmHg NIBP Mean : 78mmHg BP Location : Left upper extremity Blood Pressure Cuff Size : Regular Height : 156.5cm(Converted to: 5ft 2inch(es), 61.61inch(es)) Actual Weight : 65kg(Converted to: 143lb 5oz) Weight Source : Standing scale Dosing Weight Clinic : 65.00kg Clinic BSA : 1.68 Body Mass Index : 26.54kg/m2 SAMMIE TAYLOR - 11/14/2011 16:06 WING SCORER Subjective Pain Symptoms : No SAMMIE TAYLOR - 11/14/2011 16:06 WING SCORER Dependent Habits Tobacco Use/Currently Using : No Smoking Status : Never smoker SAMMIE TAYLOR JEANIE - 11/14/2011 16:06 WING SCORER Allergy Allergies (Active) NKA Estimated Onset Date: Unspecified ; Created By: ANGELLA SOUSA MD; Reaction Status: Active ; Category: Drug ; Substance: NKA ; Type: Allergy ; Updated By: ANGELLA SOUSA MD; Reviewed Date: 05/31/2011 13:28 CDT Source: [facility] POWERCHART Document Id: [id number] WING SCORER!23 SCORER documented in this encounter Plan of Treatment Not on filedocumented as of this encounter Procedures Procedure Name Priority Date/Time Associated Diagnosis Comme nts DIPSTICK, U Routine 11/14/2011 4:18 PM Results f or this WING SCORER procedure are i n the results section. BACTERIAL CULTURE, Routine 11/14/2011 4:18 PM Res ults for this AEROBIC, URINE WING SCORER procedure are in the results section. documented in this encounter Results (ABNORMAL) Dipstick, Urine (11/14/2011 4:18 PM WING SCORER) [facility] Queralt Method Time Signature Source Clean Void POWERCHART Urine HXUr Color Yellow POWERCHART Appearance Clear POWERCHART Glucose Negative Negative POWERCHART HXBILIRUBIN Negative Negative POWERCHART Ketones, QL(U) Trace (A) Negative POWERCHART Specific 1.025 (A) 1.020 POWERCHART [place], POCT, U HXBLOOD Negative Negative POWERCHART pH, POCT, Urine 6.0 5.0 - 8.0 POWERCHART Protein, Ur, Dip Negative Negative POWERCHART Urobilinogen 0.2 0.2 - 1.0 POWERCHART HXNITRITE Negative Negative POWERCHART Leukocyte Negative Negative POWERCHART Esterase Specimen (Source) Anatomical Collection Method Collection Time Re ceived Time Location / / Volume Laterality Urine 11/14/2011 4:18 PM WING SCORER Angella Sousa M.D. LAB URINE ORDERABLES Performing Organization Address City/State/ZIP Code Phon e Number POWERCHART Bacterial Culture, Aerobic, Urine (11/14/2011 4:18 PM WING SCORER) [facility]eralt Method Time Signature Bacterial POWERCHART Culture, Aerobic, Urine HXFinal See POWERCHART scanned/paper report. Test performed at [facility]. Specimen (Source) Anatomical Collection Method Collection Time Re ceived Time Location / / Volume Laterality Urine, Clean 11/14/2011 4:18 PM Catch WING SCORER Angella Sousa M.D. LAB MICROBIOLOGY - GENERAL O RDERABLES Performing Organization Address City/State/ZIP Code Phon e Number POWERCHART documented in this encounter Visit Diagnoses Not on filedocumented in this encounter
--- OUTSIDE RECORDS SUMMARY | 2022-05-02 15:42 | XMS_ITS | Encounter Summary ---
:1999 Author Organization [facility] Address [address] [place] [address] Care Team Providers Name Role Phone Unavailable Primary Care Provider Unavailable Encounter Details Date Type Department Care Team Description 10/24/2014 Hospital Encounter HX [facility] FB FAMILYPRA Tona Talley M.D. [address] , [address] [place], [place] [address] (Wo rk) Social History [...] Weight 76.3 kg (168 lb 3.4 oz) 10/24/2014 3:07 PM TRAVEL FREIGHT AND PASSENGER AGENT Height 158 cm (5' 2.21) 10/24/2014 3:07 PM TRAVEL FREIGHT AND PASSENGER AGENT Body Mass Index 30.56 10/24/2014 3:07 PM TRAVEL FREIGHT AND PASSENGER AGENT Body Mass Index Percentile 96.78 % 10/24/2014 3:07 PM CS T Growth Chart: [facility] (Girls, 2-20 Years) documented in this encounter Progress Notes Karena Talley M.D. - 10/24/2014 3:12 PM CST Clinic Full Note CHIEF COMPLAINT/REASON FOR VISIT rash on the back of the neck for the past 3 months. itches HISTORY OF PRESENT ILLNESS Patient is here today with a rash of the back of her neck. She noticed this about 4 months ago. It itches and irritated. She also has bumps under her arms and She was given triamcinolone 0.1% cream and Dr. Llanos at [facility] on September 17, 2014 for her neck. This did not help her Family history of diabetes She had sugar done today that was normal Also has h/o of PCOS MEDICATIONS Provera 10 mg oral tablet, 10 mg, 1 tab(s), PO, Daily, 0 refills ALLERGIES NKA PAST MEDICAL HISTORY Chronic Molluscum Contagiosum Obesity NOS Polycystic Ovary Syndrome (PCOS) Historical No historical problems SOCIAL HISTORY Date Time: 10/24/2014 15:07 Tobacco: Smoking Status: Never smoker Exposure: No Results Found Alcohol: Use: No Results Found Recreational Drugs: Use: No Results Found Type: No Results Found FAMILY HISTORY Grandmother (Maternal):Positive: Diabetes mellitus SYSTEMS REVIEW otherwise negative VITAL SIGNS T: 36.8 ??C (Core) RR: 16 BP: 100 / 66 WT: 76.3 kg PHYSICAL EXAMINATION General- No Acute Distress SKin- back of neck- thick, rough, hyperaccentuated, irritated Also hyperpigmented under axillae Bilateral upper arms have bumps- skin colored- IMPRESSION/REPORT/PLAN Acanthosis Nigricans Acanthosis nigricans This is related to your PCOS and to insulin resistance. This is a chronic condition that will be managed, but never go completely away. Treatment:Amlactin 12% cream 1-2x daily to arms and neck. Clobetasol ointment- 2x daily for 1-2 weeks to the neck then stop- if used to long it may thin skin and depigment it (make it pricing analyst permanently) This condition may also be associated infamilies or diabetes. I would recommend yearly sugar tests as there is increased risk of diabetes. 40 minutes spent with patient, over half of that discussing plan and treatment options. Ordered: OV Est Pt Level 5 - 53833 - 40 min Obesity NOS Discussed ideal body weight < 142 lbs- Ordered: OV Est Pt Level 5 - 04771 - 40 min Polycystic Ovary Syndrome (PCOS) Has appt. with Dr. Avilez next week- Ordered: OV Est Pt Level 5 - 12672 - 40 min Orders: ammonium lactate topical, 1 gary, Topical, 2xDay, # 140 gm, 6 Refill(s), Maintenance, Pharmacy: [facility] [id number] clobetasol topical, 1 gary, Topical, 2xDay, 2 weeks then stop, # 30 gm, 0 Refill(s), Maintenance, Pharmacy: [facility] [id number] Return Visit [facility] 30 Min Electronically Signed By: KARENA TALLEY MD On: 10/24/2014 03:49 PM Source: [facility] POWERCHART Document Id: [id number] EL FREIGHT AND PASSENGER AGENT documented in this encounter Miscellaneous Notes Miscellaneous - Karena Talley M.D. - 10/24/2014 3:47 PM CST Ambulatory Patient Summary [address] [id number] Visit Information Name: HAYLEY SIBLEY [facility] Number: [id number] Current Date: 10/24/2014 15:47:14 Physicians Attending Provider: KARENA TALLEY MD Primary Care Provider: PCP, UNASSIGNED - [...] 1 gary, Topical, two times a day New Routed to [facility] [address] [place], [place] [id number] clobetasol topical (clobetasol 0.05% topical ointment) 1 gary, Topical, two times a day 2 weeks then stop New Routed to [facility] [address] [place] [address] medroxyPROGESTERone (Provera 10 mg oral tablet) 1 Tablet(s), Oral, once a day Stop Taking the Following Medications: Medication list as of 10-24-14 15:47 Attention: If you have any medications at [...] Electronically Signed By: KARENA TALLEY MD Signed On:24-OCT-2014 15:26:22 Your Allergies & Intolerances Substance Reaction Symptoms Category Comments No Known Allergies Drug Your Problem List Problem Status Onset Comments Obesity NOS Active Polycystic Ovary Syndrome (PCOS) Active Acanthosis Nigricans Active Your Upcoming Appointments Date Time Location Provider 10/30/2014 16:00 FBCV FRENCH COMBER Daniela Rosado MD 11/21/2014 16:00 [facility] FamilyPrac Karena Talley MD Attention: Contact your local Clinic if further appointment detail needed. Your Goals/Additional instructions: Acanthosis nigricans This is related to your PCOS and to insulinresistance. This is a chronic condition that will be managed, but never go completely away. Treatment:Amlactin 12% cream 1-2x daily to arms and neck. Clobetasol ointment- 2x daily for 1-2 weeks to the neck then stop- if used to long it may thin skin and depigment it (make it pricing analyst permanently) This condition may also be associated in families or diabetes. I would recommend yearly sugar tests as there is increased risk of diabetes. Source: [facility] POWERCHART Document Id: [id number] EL FREIGHT AND PASSENGER AGENT Miscellaneous - Karena Talley M.D. - 10/24/2014 3:47 PM CST Ambulatory Discharge Medication List [address] [id number] Visit Information Name: HAYLEY SIBLEY [facility] Number: [id number] Visit Date: 10/24/2014 15:47:13 Attending Provider: KARENA TALLEY MD Primary Care Provider: PCP, UNASSIGNED - [...] 1 gary, Topical, two times a day New Routed to [address] [address] clobetasol topical (clobetasol 0.05% topical ointment) 1 gary, Topical, two times a day 2 weeks then stop New Routed to [address] [address] medroxyPROGESTERone (Provera 10 mg oral tablet) 1 Tablet(s), Oral, once a day Stop Taking the Following Medications: Medication list as of 10-24-14 15:47 Attention: If you have any medications at [...] Electronically Signed By: KARENA TALLEY MD Signed On:24-OCT-2014 15:26:22 Additional Information: Source: [facility] POWERCHART Document Id: [id number] EL FREIGHT AND PASSENGER AGENT Miscellaneous - Tsering Shanks, L.P.N. - 10/24/2014 3:07 PM CST Pediatric Image Scientist Intake/History Pediatric Image Scientist Intake/History Entered On: 10/24/2014 15:09 TRAVEL FREIGHT AND PASSENGER AGENT Performed On: 10/24/2014 15:07 TRAVEL FREIGHT AND PASSENGER AGENT by TSERING SHANKS Intake Height : 158 cm(Converted to: 5 ft 2 inch(es), 62 inch(es)) Clinic BSA : 1.83 Body Mass Index : 30.56 kg/m2 TSERING SHANKS - 10/24/2014 15:38 TRAVEL FREIGHT AND PASSENGER AGENT Chief Complaint : rash on the back of the neck for the past 3 months. itches Temperature Core : 36.8 DegC(Converted to: 98.2 DegF) Peripheral Pulse Rate : 68 /min Respiratory Rate : 16 /min Systolic Blood Pressure : 100 mmHg Diastolic Blood Pressure : 66 mmHg NIBP Mean : 77 mmHg BP Location : Left upper extremity Blood Pressure Cuff Size : Regular Actual Weight : 76.3 kg(Converted to: 168 lb 3 oz) Weight Source : Standing scale Dosing Weight Clinic : 76.3 kg TSERING SHANKS - 10/24/2014 15:07 TRAVEL FREIGHT AND PASSENGER AGENT General Info Languages : Finnish Is Patient Female and 13-50 no hysterectomy : Yes Status : Patient denies Are you ? : No TSERING SHANKS - 10/24/2014 15:07 TRAVEL FREIGHT AND PASSENGER AGENT Subjective Pain Symptoms : No TSERING SHANKS - 10/24/2014 15:07 TRAVEL FREIGHT AND PASSENGER AGENT Dependent Habits Tobacco Use/Currently Using : No Smoking Status : Never smoker TSERING SHANKS - 10/24/2014 15:07 TRAVEL FREIGHT AND PASSENGER AGENT ID Screen Travel Within Last 21 Days : No TSERING SHANKS - 10/24/2014 15:07 TRAVEL FREIGHT AND PASSENGER AGENT Source: [facility] POWERCHART Document Id: [id number] TRAVEL FREIGHT AND PASSENGER AGENT!5 EL FREIGHT AND PASSENGER AGENT documented in this encounter Plan of Treatment Not on filedocumented as of this encounter Visit Diagnoses Not on filedocumented in this encounter
--- OUTSIDE RECORDS SUMMARY | 2022-05-02 15:42 | XMS_ITS | Encounter Summary ---
:1999 Author Organization [facility] Address [address] [place] [address] Care Team Providers Name Role Phone Unavailable Primary Care Provider Unavailable Encounter Details Date Type Department Care Team Description 12/03/2014 Hospital Encounter HX [facility] FB FAMILYPRA Tona Talley M.D. [address] , [address] [place], [place] [address] (Wo rk) Social History [...] - Inhaled Oxygen Concentration - - Weight 75 kg (165 lb 5.5 oz) 12/03/2014 3:59 PM CDT Height - - Body Mass Index - - documented in this encounter Progress Notes Karena Talley M.D. - 12/03/2014 4:11 PM CDT Clinic Full Note CHIEF COMPLAINT/REASON FOR VISIT follow up. rash on neck not getting better. HISTORY OF PRESENT ILLNESS The area on the back of her neck is still rough and dark. She is wondering what she can do to treatthat. She did use the clobetasol ointment for 2 weeks and has continued the AmLactin cream She is here today with her mom. Acanthosis nigricans This is related to your PCOS and to insulin resistance. This is a chronic condition that will be managed, but never go completely away. Treatment:Amlactin 12% cream 1-2x daily to arms and neck. Clobetasol ointment- 2x daily for 1-2 weeks to the neck then stop- if used to long it may thin skin and depigment it (make it grounds maintenance manager permanently) This condition may also be associated infamilies or diabetes. I would recommend yearly sugar tests as there is increased risk of diabetes. [1] MEDICATIONS Amlactin 12% topical cream, 1 gary, Topical, 2xDay, 6 refills clobetasol 0.05% topical ointment, 1 gary, 2 weeks then stop, Topical, 2xDay, 0 refills Ortho-Cyclen 0.25 mg-35 mcg oral tablet, 1 tab(s), PO, Daily, 3 refills ALLERGIES NKA PAST MEDICAL HISTORY Chronic Acanthosis Nigricans Molluscum Contagiosum Obesity NOS Polycystic Ovary Syndrome (PCOS) Historical No historical problems PROCEDURES/SURGICAL HISTORY None. SOCIAL HISTORY Date Time: 12/03/2014 15:59 Tobacco: Smoking Status: Never smoker Exposure: No Results Found Alcohol: Use: No Results Found Recreational Drugs: Use: No Results Found Type: No Results Found FAMILY HISTORY Grandmother (Maternal):Positive: Diabetes mellitus SYSTEMS REVIEW otherwise negative VITAL SIGNS T: 36.6 ??C (Core) HR: 72 RR: 16 BP: 98 / 62 WT: 75 kg PHYSICAL EXAMINATION General- No Acute Distress skin- back of neck is rough and hyperpigmented- Pictures taken of this skin lesion and will be uploaded to [employer] IMPRESSION/REPORT/PLAN Acanthosis Nigricans 1. Apply clobetasol ointment to back of neck then apply amlactin on top - do this twice daily for 2months then be seen. Then must stop clobetasol and can continue on the amlactin. discussed jail risk of Clobetasol and hypopigmentation. Orders: clobetasol topical, 1 gary, Topical, 2xDay, 1-2 months to back of neck, # 60 gm, 0 Refill(s), [id number] Return Visit [facility] Med 15 Min FOOTNOTES [1]Clinic Full Note; KARENA TALLEY MD 10/24/2014 15:12 BUSINESS SYSTEMS LEAD Electronically Signed By: KARENA TALLEY MD On: 12/03/2014 04:23 PM Source: [facility] POWERCHART Document Id: [id number] documented in this encounter Miscellaneous Notes Miscellaneous - Karena Talley M.D. - 12/03/2014 4:23 PM CDT Ambulatory Patient Summary [address] [id number] Visit Information Name: HAYLEY SIBLEY [facility] Number: [id number] Current Date: 12/03/2014 16:23:27 Physicians Attending Provider: KARENA TALLEY MD Primary [...] a day 1-2 months toback of neck This is a CHANGE Routed to [address] [address] norgestimate-ethinyl estradiol (Ortho-Cyclen 0.25 mg-35 mcg oral tablet) 1 Tablet(s), Oral, once a day Stop Taking the Following Medications: Medication list as of 12-03-14 16:23 Attention: If you have any medications at [...] Electronically Signed By: KARENA TALLEY MD Signed On:03-DEC-2014 16:17:36 Your Allergies & Intolerances Substance Reaction Symptoms Category Comments No Known Allergies Drug Your Problem List Problem Status Onset Comments Obesity NOS Active Polycystic Ovary Syndrome (PCOS) Active Acanthosis Nigricans Active Your Upcoming Appointments Date Time Location Provider 02/04/2015 16:15 [facility] FamilyPrac Karena Talley MD 02/09/2015 16:30 [facility] PLAN MANAGER Daniela Rosado MD Attention: Contact your local Clinic if further appointment detail needed. Your Goals/Additional instructions: Source: [facility] POWERCHART Document Id: [id number] Miscellaneous - Karena Talley M.D. - 12/03/2014 4:23 PM CDT Ambulatory Discharge Medication List [address] [id number] Visit Information Name: HAYLEY SIBLEY [facility] Number: [id number] Visit Date: 12/03/2014 16:23:26 Attending Provider: KARENA TALLEY MD Primary Care [...] a day 1-2 months toback of neck This is a CHANGE Routed to [address] [address] norgestimate-ethinyl estradiol (Ortho-Cyclen 0.25 mg-35 mcg oral tablet) 1 Tablet(s), Oral, once a day Stop Taking the Following Medications: Medication list as of 12-03-14 16:23 Attention: If you have any medications at [...] Electronically Signed By: KARENA TALLEY MD Signed On:03-DEC-2014 16:17:36 Additional Information: 1. Apply clobetasol ointment to back of neck then apply amlactin on top - dothis twice daily for 2 months then be seen. Then must stop clobetasol and can continue on the amlactin. Source: [facility] POWERCHART Document Id: [id number] Miscellaneous - Tsering Shanks, LJustineP.N. - 12/03/2014 3:59 PM CDT Pediatric Numerical Control Router Operator Intake/History Pediatric Numerical Control Router Operator Intake/History Entered On: 12/03/2014 16:01 CDT Performed On: 12/03/2014 15:59 CDT by TSERING SHANKS Intake Chief Complaint : follow up. rash on neck not getting better. Temperature Core : 36.6 DegC(Converted to: 97.9 DegF) Peripheral Pulse Rate : 72 /min Respiratory Rate : 16 /min Systolic Blood Pressure : 98 mmHg Diastolic Blood Pressure : 62 mmHg NIBP Mean : 74 mmHg BP Location : Left upper extremity Blood Pressure Cuff Size : Regular Actual Weight : 75 kg(Converted to: 165 lb 6 oz) Weight Source : Standing scale Dosing Weight Clinic : 75 kg TSERING SHANKS - 12/03/2014 15:59 CDT General Info Languages : Czech Is Patient Female and 13-50 no hysterectomy : Yes Status : Patient denies Are you ? : No TSERING SHANKS - 12/03/2014 15:59 CDT Subjective Pain Symptoms : No TSERING SHANKS - 12/03/2014 15:59 CDT Dependent Habits Tobacco Use/Currently Using : No Smoking Status : Never smoker TSERING SHANKS - 12/03/2014 15:59 CDT ID Screen Travel Within Last 21 Days : No Contact with someone with Ebola : No TSERING SHANKS - 12/03/2014 15:59 CDT Source: [facility] [employer] Document Id: [id number] CDT!27 documented in this encounter Plan of Treatment Not on filedocumented as of this encounter Visit Diagnoses Not on filedocumented in this encounter
--- OUTSIDE RECORDS SUMMARY | 2022-05-02 15:42 | XMS_ITS | Encounter Summary ---
:1999 Author Organization [facility] Address [address] [place] [address] Care Team Providers Name Role Phone Niecy Ritchie APRN, C.N.P. Primary Care Provider [phone] Encounter Details Date Type Department Care Team Description 08/17/2021 Orders Only [facility] PCP [facility] MNT Yaya Ritchie i, APRN, C.N.P. [address] [facility] [address] [place] [phone] (Wo rk) Social History Tobacco Use Types [...] on filedocumented in this encounter Care Teams Import And Export Clerk Relationship Specialty Start Date End Date Niecy Ritchie APRN, C.N.P. PCP - General Family Medicine 05/12/21 01/02/22 [address] [facility] [place] [address] documented as of this encounter
--- OUTSIDE RECORDS SUMMARY | 2022-05-02 15:42 | XMS_ITS | Encounter Summary ---
:1999 Author Organization [facility] Address [address] [place] [address] Care Team Providers Name Role Phone Unavailable Primary Care Provider Unavailable Encounter Details Date Type Department Care Team Description 10/24/2014 Hospital Encounter HX [facility] LAB Daniela Rosado M.D. [address], [place] [phone] (Wo rk) Social History Tobacco Use Types Packs/Day Years Used Date Smoking Tobacco: Never Assessed Sex Assigned at Date Recorded Not on file documented as of this encounter Plan of Treatment Not on filedocumented as of this encounter Procedures Procedure Name Priority Date/Time Associated Diagnosis Comme nts GLUCOSE POST Routine 10/24/2014 10:37 AM Results for this PRANDIAL 2HR, S GLOBAL VP CREATIVE + CONTENT MARKETING procedure ar e in the results section. GLUCOSE, FASTING, Routine 10/24/2014 8:38 AM Resu lts for this S/P GLOBAL VP CREATIVE + CONTENT MARKETING procedure are i n the results section. documented in this encounter Results Glucose Post Prandial 2HR (10/24/2014 10:37 AM GLOBAL VP CREATIVE + CONTENT MARKETING) P athologist Signature HXGluc 2hr 103 <=199 MGDL POWERCHART Glucola Specimen (Source) Anatomical Collection Method Collection Time Re ceived Time Location / / Volume Laterality Blood 10/24/2014 10:37 AM GLOBAL VP CREATIVE + CONTENT MARKETING Daniela Rosado M.D. LAB BLOOD ADD-ON Performing Organization Address City/State/ZIP Code Phon e Number POWERCHART Glucose, Fasting (10/24/2014 8:38 AM GLOBAL VP CREATIVE + CONTENT MARKETING) P athologist Signature Glucose, 89 70 - 99 POWERCHART Fasting, S MGDL Specimen (Source) Anatomical Collection Method Collection Time Re ceived Time Location / / Volume Laterality Blood 10/24/2014 8:38 AM GLOBAL VP CREATIVE + CONTENT MARKETING Daniela Rosado M.D. LAB BLOOD NON ADD-ON Performing Organization Address City/State/ZIP Code Phon e Number POWERCHART documented in this encounter Visit Diagnoses Not on filedocumented in this encounter
--- OUTSIDE RECORDS SUMMARY | 2022-05-02 15:42 | XMS_ITS | Encounter Summary ---
:1999 Author Organization [facility] Address [address] [place] [address] Care Team Providers Name Role Phone Unavailable Primary Care Provider Unavailable Encounter Details Date Type Department Care Team Description 01/26/2011 Hospital Encounter HX [facility] Sa hawk Sousa M.D. [phone] (Wo rk) Social History Tobacco Use Types [...] Weight 55.3 kg (121 lb 14.6 oz) 01/26/2011 2:55 PM CDT Height - - Body Mass Index - - documented in this encounter Progress Notes Angella Sousa M.D. - 01/26/2011 12:00 AM CDT [id number] CHIEF COMPLAINT/ REASON FOR VISIT Sore throat, cough, stomachache HISTORY OF PRESENT ILLNESS She has been complaining of stomachache since last night. She did go to school today but came home early because of stomachache, watery diarrhea and a sore throat. No fever measured. She has a cough that has been present for a few days although she coughs only once during her visit with me. She is drinking. No vomiting. She says her stomach is growling more than usual and that causes her pain. No dysuria. CURRENT MEDICATIONS None ALLERGIES No known allergies VITAL SIGNS See EMR PHYSICAL EXAM GENERAL: She sounds tired. EYES: No scleral injection. No eye drainage. SKIN: No rashes. ENT: Normal tympanic membranes. Pharynx mildly erythematous. Right tonsil 2+, left 1+. LYMPH NODES: No cervical lymph node enlargement. HEART: Normal S1 and split S2 without murmurs. LUNGS: Clear to auscultation. ABDOMEN: Soft, without masses or hepatosplenomegaly. LABORATORY Rapid strep test negative. IMPRESSION/REPORT/PLAN Viral syndrome. This will run its course. Prescription medicines are not indicated unless the backup throat culture yields strep. SMB/glt Signed Angella Sousa M.D. Ops Analyst Electronically Signed By: ANGELLA SOUSA MD On: 01/28/2011 02:50 PM Source: [facility] [email or web address] Document Id: [id number] documented in this encounter Miscellaneous Notes Miscellaneous - Angella Sousa M.D. - 01/26/2011 3:25 PM CDT Ambulatory Patient Summary [address] [phone] Visit Information Name: HAYLEY SIBLEY Current Date: 01/26/2011 15:25:26 Primary Care Provider: ANGELLA SOUSA MD Your [...] No Appointments found Your Goals/Additional instructions: Source: [facility] youwho Document Id: [id number] Electronically signed by Conversion, [facility] Publications Writer [id number] at 02/12/2017 7:27 PM CDT Miscellaneous - Angella Sousa M.D. - 01/26/2011 3:25 PM CDT Ambulatory Depart Summary [address] [id number] Visit Information Name: HAYLEY SIBLEY Current Date: 01/26/2011 15:25:26 Primary Care Provider: ANGELLA SUOSA MD HAYLEY SIBLEY has been given the [...] to the patient and/or family, guardian/caregiver. Source: [facility] youwho Document Id: [id number] Electronically signed by Conversion, [facility] Publications Writer [id number] at 02/12/2017 7:27 PM CDT Miscellaneous - Conversion, Historical Provider Ser - 01/26/2011 2:55 PM CDT Pediatric Oncology Pharmacist Intake/History Pediatric Oncology Pharmacist Intake/History Entered On: 01/26/2011 15:00 CDT Performed On: 01/26/2011 14:55 CDT by OSWALDO SALVADOR LPN Intake Chief Complaint: throat Temperature Core: 36.6C(Converted to: 97.9DegF) Peripheral Pulse Rate: 74/min Respiratory Rate: 16/min Systolic Blood Pressure: 112mmHg Diastolic Blood Pressure: 70mmHg NIBP Mean: 84mmHg BP Location: Left upper extremity Actual Weight: 55.300kg(Converted to: 121lb 15oz) Dosing Weight Clinic: 55.30kg OSWALDO SALVADOR LPN - 01/26/2011 14:55 CDT Subjective Pain Symptoms: Yes OSWALDO SALVADOR BOBBIN STRIPPER - 01/26/2011 14:55 CDT Dependent Habits Tobacco Use/Currently Using: No OSWALDO SALVADOR BOBBIN STRIPPER - 01/26/2011 14:55 CDT Allergy Allergies (Active) NKA Estimated Onset Date: Unspecified ; Created By: ANGELLA SOUSA MD; Reaction Status: Active ; Category: Drug ; Substance: NKA ; Type: Allergy ; Updated By: ANGELLA SOUSA MD; Reviewed Date: 12/16/2009 13:11 CDT Source: [facility] youwho Document Id: [id number] CDT!16 documented in this encounter Plan of Treatment Not on filedocumented as of this encounter Visit Diagnoses Not on filedocumented in this encounter
--- OUTSIDE RECORDS SUMMARY | 2022-05-02 15:42 | XMS_ITS | Encounter Summary ---
:2000 Author Organization [facility] Address [address] [place] [address] Care Team Providers Name Role Phone Unavailable Primary Care Provider Unavailable Encounter Details Date Type Department Care Team Description 11/10/2014 Hospital Encounter HX [facility] OBGYDain Benjamin M.D. [address] [place], [place] [phone] (Wo rk) Social History [...] - Inhaled Oxygen Concentration - - Weight 76.9 kg (169 lb 8.5 oz) 11/10/2014 4:42 PM LINES TENDER Height - - Body Mass Index - - documented in this encounter Progress Notes Shawn Arnold M.D. - 11/10/2014 4:18 PM CST [id number] CHIEF COMPLAINT/REASON FOR VISIT Followup of PCOS. HISTORY OF PRESENT ILLNESS Hayley is a 14-year-old, nulliparous female, who initially presented in consultation on 10/07/2014 for secondary amenorrhea that I felt was related to PCOS at that time. Hayley underwent menarche at age 12, and with her first period she had just 2 days of bleeding. About 3 months later, she had another episode of bleeding that lasted only 1 day. She had no bleeding from that time until I saw her in September. She reports crampy abdominal pain over the last 2 years that is episodic and occurs about once per month, about the same time each month and lasts about a day. She has mild acne on her face, but denies any abnormal hair growth. When she saw her primary provider, Amanda Llanos, for evaluation of th is, laboratory evaluation was undertaken and showed normal TSH and prolactin, normal FSH and estradiol, normal fasting glucose and normal cholesterol, but elevated total testosterone. When I saw her last, I recommended a 2-hour GTT, which also returned normal. I gave her a 10-day course of Provera andshe did have bleeding for 7 days after the Provera that was fairly light. She has had no vaginal bleeding since that time. MEDICATIONS See EMR. ALLERGIES See EMR. SYSTEMS REVIEW GENERAL: No fevers, chills, fatigue, unintentional weight loss or weight gain. HEENT: No changes in vision or hearing, no sore throat or nasal congestion. CARDIOVASCULAR: No chest pain, irregular heartbeat or racing heart. RESPIRATORY: No shortness of breath, cough or wheeze. GASTROINTESTINAL: No nausea, vomiting, diarrhea, constipation or abdominal pain. GENITOURINARY: No pain or burning with urination, no irregular vaginal bleeding, heavy periods, painful periods, abnormal vaginal discharge, leaking urine, leaking stool or gas. SKIN: No rashes or skin lesions. BREASTS: No masses or lumps, no discharge from the nipples. NEUROLOGIC: No difficulty with memory, numbness, tingling, falls. PSYCHIATRIC: No anxiety, depression, or difficulty sleeping. ENDOCRINE: No heat intolerance, cold intolerance, excessive thirst or hair loss. VITAL SIGNS See EMR. PHYSICAL EXAMINATION General: Well-nourished female, in no acute distress. IMPRESSION/REPORT/PLAN A 14-year-old, nulliparous female, who presents for followup of the polycystic ovarian syndrome causing secondary amenorrhea. 1. Polycystic ovarian syndrome: The patient has amenorrhea, acne, evidence of hirsutism with dark hair growth on her lower back and upper lip and biochemical evidence of hyperandrogenemia with elevatedtotal testosterone, recent lab evaluation. She did have withdrawal bleed after a course of Provera, which is consistent with this diagnosis. At the time of the last visit, we discussed the pathophysiology of PCOS at length and she is given a handout on it to review. We discussed that women with PCOS are at increased risk for hyperlipidemia, which she does not currently have as well as glucose intolerance over diabetes, which she also does not have at this time. Today, we discussed the importance of m aintaining a healthy weight and losing modest amount of weight is possible, which can help with return of ovarian function. We also discussed long-term treatment of oligomenorrhea, which can cause unopposed estrogen exposure. At this point, she would like to go ahead with OCPs. A prescription for thiswas sent. Risks and benefits of this were discussed with the patient and her mother and instructionsfor use were also discussed. 2. Obesity: As noted above. The importance of maintaining a healthy weight if possible, even obtaining a modest amount of weight loss with PCOS was discussed with the patient and her mother today. 3. Followup: Three months. Shawn Arnold M.D./colleen Electronically Signed By: SHAWN ARNOLD MD On: 11/13/2014 10:01 AM Source: [facility] MHSDOLBEYNONRADSYS Document Id: [id number] S TENDER documented in this encounter Miscellaneous Notes Miscellaneous - Shawn Arnold M.D. - 11/11/2014 1:27 PM CST Ambulatory Patient Summary [facility] [address] [place] [id number] Visit Information Name: HAYLEY SIBLEY [facility] Number: [id number] Visit Date: 11/11/2014 13:27:05 Attending Provider: SHAWN ARNOLD MD Primary Care Provider: PCP, UNASSIGNED - FB SIBLEYHAYLEY COOK has been given the following list of [...] times a day 2 weeks then stop norgestimate-ethinyl estradiol (Ortho-Cyclen 0.25 mg-35 mcg oral tablet) 1 Tablet(s), Oral, once a day New Routed to [address] [address] Stop Taking the Following Medications: Medication list as of 11-11-14 13:27 Attention: If you have any medications at home that are not on this list, DO NOT take them until youcontact your provider for clarification. Give a copy of your medication list to your primary care provider. Update your medication list any time medications or doses are changed and carry your medication list at all times in case of emergency. Electronically Signed By: SHAWN ARNOLD MD Signed On:11-NOV-2014 13:27:00 Additional Information: Source: [facility] POWERCHART Document Id: [id number] S TENDER Miscellaneous - Shawn Arnold M.D. - 11/11/2014 1:27 PM CST Ambulatory Discharge Medication List [address] [id number] Visit Information Name: TOÑITO HAYLEY [facility] Number: [id number] Visit Date: 11/11/2014 13:27:04 Attending Provider: SHAWN ARNOLD MD Primary Care Provider: PCP, UNASSIGNED [...] times a day 2 weeks then stop norgestimate-ethinyl estradiol (Ortho-Cyclen 0.25 mg-35 mcg oral tablet) 1 Tablet(s), Oral, once a day [facility] [place] [address] Stop Taking the Following Medications: Medication list as of 11-11-14 13:27 Attention: If you have any medications at home that are not on this list, DO NOT take them until youcontact your provider for clarification. Give a copy of your medication list to your primary care provider. Update your medication list any time medications or doses are changed and carry your medication list at all times in case of emergency. Electronically Signed By: SHAWN ARNOLD MD Signed On:11-NOV-2014 13:27:00 Additional Information: Source: [facility] POWERCHART Document Id: [id number] S TENDER Miscellaneous - Clau Lawrence, L.P.N. - 11/10/2014 4:42 PM CST Adult Social Work Job Titles Intake/History Adult Social Work Job Titles Intake/History Entered On: 11/10/2014 16:43 LINES TENDER Performed On: 11/10/2014 16:42 LINES TENDER by CLAU LAWRENCE Intake Chief Complaint : Follow up- amenorrhea LMP Date : 10/20/2014 Peripheral Pulse Rate : 60 /min Respiratory Rate : 14 /min Heart Rhythm : Regular Systolic Blood Pressure : 102 mmHg Diastolic Blood Pressure : 60 mmHg NIBP Mean : 74 mmHg BP Location : Right upper extremity Blood Pressure Cuff Size : Regular Actual Weight : 76.9 kg(Converted to: 169 lb 9 oz) Weight Source : Standing scale Dosing Weight Clinic : 76.9 kg CLAU LAWRENCE - 11/10/2014 16:42 LINES TENDER General Info Languages : Tamazight Is Patient Female and 13-50 no hysterectomy : Yes Status : Patient denies Are you ? : No CLAU LAWRENCE - 11/10/2014 16:42 LINES TENDER Subjective Pain Symptoms : No CLAU LAWRENCE - 11/10/2014 16:42 LINES TENDER Dependent Habits Tobacco Use/Currently Using : No Smoking Status : Never smoker CLAU LAWRENCE - 11/10/2014 16:42 LINES TENDER ID Screen Travel Within Last 21 Days : No Contact with someone with Ebola : No CLAU LAWRENCE [place] - 11/10/2014 16:42 LINES TENDER Source: [facility] Clikthrough Document Id: [id number] LINES TENDER!28 S TENDER documented in this encounter Plan of Treatment Not on filedocumented as of this encounter Visit Diagnoses Not on filedocumented in this encounter
--- OUTSIDE RECORDS SUMMARY | 2022-05-02 15:42 | XMS_ITS | Encounter Summary ---
:2000 Author Organization [facility] Address [address] [place] [address] Care Team Providers Name Role Phone Unavailable Primary Care Provider Unavailable Encounter Details Date Type Department Care Team Description 02/10/2015 Hospital Encounter HX [facility] OBGYD[facility] Benjamin M.D. [address] [place], [place] [phone] (Wo rk) Social History [...] - Inhaled Oxygen Concentration - - Weight 72.1 kg (158 lb 15.2 oz) 02/10/2015 4:23 PM CDT Height - - Body Mass Index - - documented in this encounter Progress Notes Shawn Arnold M.D. - 02/10/2015 3:46 PM CDT [id number] CHIEF COMPLAINT/REASON FOR VISIT Followup of PCOS. HISTORY OF PRESENT ILLNESS Hayley is a 14-year-old, nulliparous female, who initially presented in consultation on 10/07/2014 for secondary amenorrhea that I felt was related to PCOS and she eventually was started on oral contraceptive pills for management of her symptoms and she presents today for followup. Hayley underwent menarche at age 12 and with her first period, she had just 2 days of bleeding. About 3 months later, she had another episode of bleeding that lasted only 1 day, but from that time until I saw her in 2014, she had had no vaginal bleeding. She has mild acne on her face, but denies any abnormal hair growth. However, on my evaluation I noted dark hair growth on her lower back and upper lip with biochemical evidence of hyperandrogenism with an elevated total testosterone as well. Therefore, she metcriteria for PCOS. Initially, I had given her a 10-day course of Provera and she had a withdrawal bleed with that. Her bleeding was fairly light. She has had periods with each pack of her oral contraceptive pills as well but this is been fairly light. TSH, prolactin, FSH and estradiol have all been normal. Her fasting glucose and 2 hour GTT as well as cholesterol are all normal. She reports that she has had no unwanted side effects from the oral contraceptive pills and is very happy with them. MEDICATIONS See EMR. ALLERGIES See EMR. SYSTEMS [...] loss. VITAL SIGNS See EMR. PHYSICAL EXAMINATION Well-nourished female, in no acute distress. IMPRESSION/REPORT/PLAN A 14-year-old, nulliparous female, who presents today for follow up of polycystic ovary syndrome, treated with oral contraceptive pills. 1. Polycystic ovary syndrome with secondary amenorrhea: The patient was started on oral contraceptive pills back in November and has been taking them ever since. She has had withdrawal bleeds during the last week of each pill pack. This lasts typically 7 days and is fairly light. She has had no unwanted side effects from the oral contraceptive pills, so we will plan to continue them. I would like to seethe patient back in a year at which time, I would recommend repeat hormone testing since her total testosterone was elevated on last check. We will also periodically need to check a 2 hour GTT and fasting lipid panel. 2. Obesity: I have discussed the importance of maintaining a healthy weight and obtaining modest weight loss if possible with the patient and her mother. Her weight today is actually down nearly 3 kg from last visit and nearly 5 kg from when I saw her in November, which is excellent. 3. Follow up: One year. Shawn Arnold M.D./colleen Electronically Signed By: SHAWN ARNOLD MD On: 02/14/2015 11:14 AM Source: [facility] MHSDOLBEYNONRADSYS Document Id: [id number] documented in this encounter Miscellaneous Notes Miscellaneous - Shawn Arnold M.D. - 02/10/2015 5:33 PM CDT Ambulatory Patient Summary [address] [id number] Visit Information Name: HAYLEY SIBLEY [facility] Number: [id number] Visit Date: 02/10/2015 17:33:26 Attending Provider: SHAWN ARNOLD MD Primary Care [...] the Following Medications: Medication list as of 02-10-15 17:33 Attention: If you have any medications at [...] Electronically Signed By: SHAWN ARNOLD MD Signed On:10-FEB-2015 17:33:22 Additional Information: Source: [facility] POWERCHART Document Id: [id number] Miscellaneous - Shawn Arnold M.D. - 02/10/2015 5:33 PM CDT Ambulatory Discharge Medication List [address] [id number] Visit Information Name: HALYEY SIBLEY [facility] Number: [id number] Visit Date: 02/10/2015 17:33:25 Attending Provider: SHAWN ARNOLD MD Primary Care [...] the Following Medications: Medication list as of 02-10-15 17:33 Attention: If you have any medications at [...] Electronically Signed By: SHAWN ARNOLD MD Signed On:10-FEB-2015 17:33:22 Additional Information: Source: [facility] CareOneCHART Document Id: [id number] Miscellaneous - Clau Lawrence LJustineP.N. - 02/10/2015 4:23 PM CDT Adult Marble Setter Intake/History Adult Marble Setter Intake/History Entered On: 02/10/2015 16:24 CDT Performed On: 02/10/2015 16:23 CDT by CLAU LAWRENCE Intake Chief Complaint : FOllow up PCOS Peripheral Pulse Rate : 62 /min Respiratory Rate : 14 /min Heart Rhythm : Regular Systolic Blood Pressure : 94 mmHg Diastolic Blood Pressure : 60 mmHg NIBP Mean : 71 mmHg BP Location : Left upper extremity Blood Pressure Cuff Size : Regular Actual Weight : 72.1 kg(Converted to: 158 lb 15 oz) Weight Source : Standing scale Dosing Weight Clinic : 72.1 kg CLAU LAWRENCE - 02/10/2015 16:23 CDT General Info Languages : Pashto Is Patient Female and 13-50 no hysterectomy : Yes Status : Patient denies Are you ? : No CLAU LAWRENCE - 02/10/2015 16:23 CDT Subjective Pain Symptoms : No CLAU LAWRENCE - 02/10/2015 16:23 CDT Dependent Habits Tobacco Use/Currently Using : No Smoking Status : Never smoker CLAU LAWRENCE - 02/10/2015 16:23 CDT ID Screen Travel Within Last 21 Days : No Contact with someone with Ebola : No CALU LAWRENCE - 02/10/2015 16:23 CDT Source: [facility] CareOneCHART Document Id: [id number] CDT!27 documented in this encounter Plan of Treatment Not on filedocumented as of this encounter Visit Diagnoses Not on filedocumented in this encounter
--- OUTSIDE RECORDS SUMMARY | 2022-05-02 15:42 | XMS_ITS | Encounter Summary ---
:2000 Author Organization [facility] Address [address] [place] [address] Care Team Providers Name Role Phone Karen Zaman APRN, C.N.P. Primary Care Provider [phone] Reason for Visit Reason Onset Date Comments Testing For Upper Respiratory Virus Symptoms 05/10/2021 Encounter Details Date Type Department Care Team Description 05/10/2021 External Outreach Department of Family Ethan aMrie Contact With And Medicine, Doyle Meyer D.O. (Suspected) Exposure Building, in [address] COVID-19 (Primary [place], [place] Dx) [address] [facility] [address] [place], [place] [phone] [address] (Work) [phone] Social History Tobacco Use Types Packs/Day Years Used Date Smoking Tobacco: Never Smokeless Tobacco: Never Alcohol Use Standard Drinks/Week Comments No 0 (1 standard drink = 0.6 oz pure alcoho l) Sex Assigned at Date Recorded Not on file documented as of this encounter Progress Notes Sheron Christianson R.N. - 05/10/2021 4:35 PM CDT Encounter created for symptomatic infectious disease screening with possible COVID, Influenza, RSV, and/or Group A Strep testing. documented in this encounter Miscellaneous Notes Result Encounter Note - Gracie Smiley R.N. - 05/11/2021 7:29 AM CDT The patient will be contacted if they are eligible for Monoclonal Antibody Infusion (MASS 1 or greater) and/or Remote Patient Monitoring (MASS 3 or greater). The [facility] Covid Care Team (CCT) sends general guidance about COVID-19 to all patients by letter or portal, except when a patient is hospitalized or resides in a jail. [facility] will call all adult patients at highest risk for severe complications of COVID-19 (MASS 3 or greater), those without an online services account, and those who require an pack press operator. Any patient with a MASS score 1 or greater or a COVID-19 score 1 or greater may be at higher risk ofsevere disease. These patients will follow up directly with primary care. The primary care team willdecide if the patient needs a phone call or a follow up portal message to assess symptom severity, provide individualized guidance on symptom monitoring or symptom management, or to reinforce when to se ek care. [facility] encourages patients to follow up with their PCP with questions, worsening symptoms, or for symptom management. For questions, contact the [facility]id Care Team ([facility]): Pager: [phone] In basket: P RST/[facility] COVID-19 POSITIVE Covid Care e-consult Components of the Monoclonal Antibody Selection Score (MASS) Compromised Immune System/Transplant = 4 points Chronic Kidney Disease on Dialysis = 4 points Age greater than or equal to 55 and chronic pulmonary disease = 3 points Age greater than or equal to 65 = 2 points Age greater than or equal to = 2 points Diabetes = 2 points Age greater than or equal to 55 AND cardiovascular disease = 2 points Age greater than or equal to 55 and hypertension = 1 point NOTE: At the time of testing, patients are instructed to obtain the result by calling the [facility] result line or by checking the online services account. documented in this encounter Plan of Treatment Not on filedocumented as of this encounter Procedures Procedure Name Priority Date/Time Associated Diagnosis Comme nts SARS CORONAVIRUS-2 Routine 05/10/2021 4:37 PM Contact With And Results for this RNA, V CDT (Suspected) Exposure procedu re are in To COVID-19 the results section. documented in this encounter Results (ABNORMAL) SARS Coronavirus-2 RNA, V Symptomatic (05/10/2021 4:37 PM CDT) [facility] gist Method Time Signature SARS-CoV-2 Swab, 05/11/2021 MKTO Specimen Nasopharynx 2:10 AM CDT Source SARS CoV-2 Detected (A) Undetected 05/11/2021 MKTO RNA, TMA 2:10 AM CDT Comment: SARS-CoV-2 RNA present. ----ADDITIONAL INFORMATION---- This molecular amplification test was pe rformed using the Aptima SARS-CoV-2 assay ([employer] on the [employer] Micro[employer] tem under emergency use authorization (EUA) by the U.S. Food and Drug Administ ration. Fact sheets for this EUA assay can be fo und at the following links: For Healthcare Providers: https://www.OneEyeAnt a.gov/media/883155/download For Patients: https://www.fda.gov/media/ 406620/download Specimen Anatomical Collection Method Collection Time Receive d Time (Source) Location / / Volume Laterality Varies 05/10/2021 4:37 PM 6:56 (Nasopharynx) CDT PM CDT Ethan Marie D.O. LAB MICROBIOLOGY - GENERAL O DESIRAE Performing Organization Address City/State/[facility] Code Phon e Number [facility]- [address] [place] [id number] [place] [address] [address] documented in this encounter Visit Diagnoses Diagnosis Contact With And (Suspected) Exposure To COVID-19 - Primary documented in this encounter Additional Health Concerns Infection Onset Date Last Indicated Resolved Time COVID19 Pending 05/10/2021 05/10/2021 05/11/2021 2:10 AM CDT documented as of this encounter Care Teams Ingot Stripper Relationship Specialty Start Date End Date Karen Zaman, BART, C.N.P. PCP - General 02/23/17 05/11/21 [address] [place] [address] documented as of this encounter
--- OUTSIDE RECORDS SUMMARY | 2022-05-02 15:42 | XMS_ITS | Encounter Summary ---
:2000 Author Organization [facility] Address [address] [place] [address] Care Team Providers Name Role Phone Unavailable Primary Care Provider Unavailable Encounter Details Date Type Department Care Team Description 02/09/2011 Hospital Encounter HX [facility] Sa hawk Sousa M.D. [phone] (Wo rk) Social History Tobacco Use Types Packs/Day Years Used Date Smoking Tobacco: Never Assessed Sex Assigned at Date Recorded Not on file documented as of this encounter Last Filed Vital Signs Vital Sign Reading Time Taken Comments Blood Pressure - - Pulse - - Temperature - - Respiratory Rate - - Oxygen Saturation - - Inhaled Oxygen Concentration - - Weight 53 kg (116 lb 13.5 oz) 02/09/2011 3:36 PM CDT Height - - Body Mass Index - - documented in this encounter Progress Notes Angella Sousa M.D. - 02/09/2011 12:00 AM CDT [id number] CHIEF COMPLAINT/ REASON FOR VISIT Still coughing, cough is worse than it was before. HISTORY OF PRESENT ILLNESS She was seen 2 weeks ago with cough and sore throat. She was diagnosed with a viral illness. The sore throat resolved but the cough has worsened. She missed school 1 day last week because she was up much of the night coughing. She has bouts of coughing both day and night. She sometimes gets a headache with her cough. She sometimes gags. She feels that she coughs up mucus. No rapid, labored breathing. No ear pain. No gastrointestinal symptoms. No nasal drainage. Nose sounds clear. Medication. 1. Azithromycin, 500 milligrams today then 250 milligrams daily for 4 days. ALLERGIES No known allergies VITAL SIGNS See EMR PHYSICAL EXAM GENERAL: Occasional cough during the visit. SKIN: No rashes. EYES: No redness or drainage. ENT: Normal tympanic membranes. Quiet nasal respirations. Posterior pharynx noninjected. LYMPH NODES: No cervical lymph node enlargement. HEART: Normal S1 and split S2 without murmurs. LUNGS: Clear to auscultation. No wheezes or rales. She needs some encouragement to take a deep breath. ABDOMEN: Soft without masses or hepatosplenomegaly. IMPRESSION/REPORT/PLAN Sinusitis. Symptoms for nearly 3 weeks. Treat with a azithromycin. SMB/kmk Signed Angella Sousa M.D. Lead Customer Service Representative Electronically Signed By: ANGELLA SOUSA MD On: 02/11/2011 02:59 PM Source: [facility] [email or web address] Document Id: [id number] documented in this encounter Miscellaneous Notes Miscellaneous - Angella Sousa M.D. - 02/09/2011 3:53 PM CDT Ambulatory Patient Summary [address] [address] Visit Information Name: HAYLEY SIBLEY Current Date: 02/09/2011 15:53:27 Primary Care Provider: ANGELLA SOUSA MD Your Medications Here is a list of your medications. It is important to take your medications as directed. Use a pillbox or chart to help remind you to take your medications. Please let your doctor or nurse know if you have problems taking your medications. Medication/Strength Dose Route Frequency Indications/Special Instructions/Comments azithromycin (Zithromax 200 mg/5 ml oral liquid) 500 mg today then 250 mg daily days 2 through 5 Oral once a day Your Allergies & Intolerances Substance Reaction Symptoms [...] No Appointments found Your Goals/Additional instructions: [facility] Document Id: [id number] Electronically signed by Conversion, [facility] Electrical And Radio Mock Up Mechanic [id number] at 02/12/2017 10:06 PM CDT Terrell - Angella Sousa M.D. - 02/09/2011 3:53 PM CDT Ambulatory Depart Summary [address] [address] Visit Information Name: SIBLEYHAYLEY COOK Current Date: 02/09/2011 15:53:26 Primary Care Provider: ANGELLA SOUSA MD BRIAN SIBLEYA has been given the following list of medications: Your Medications It is important to take your medications as directed. Use a pill box or chart to help remind you to take your medications. Please let your doctor or nurse know if you have problems taking your medications. Medication/Strength Dose Route Frequency Indications/Special Instructions/Comments azithromycin (Zithromax 200 mg/5 ml oral liquid) 500 mg today then 250 mg daily days 2 through 5 Oral once a day Additional Information: Yes - Current list of reconciled medications is provided and explained to the patient and/or family, guardian/caregiver. Source: [employer] Document Id: [id number] Electronically signed by Conversion, [facility] Electrical And Radio Mock Up Mechanic [id number] at 02/12/2017 10:06 PM CDT Terrell - Sammie Taylor LJustineP.N. - 02/09/2011 3:36 PM CDT Pediatric Client Hr Manager Intake/History Pediatric Client Hr Manager Intake/History Entered On: 02/09/2011 15:40 CDT Performed On: 02/09/2011 15:36 CDT by SAMMIE TAYLOR Intake Chief Complaint: c/o cough for 3 weeks, many OTC meds given, no relief, no fevers, vomitting from coughing, hard to catch her breath Temperature Oral: 36.6C(Converted to: 97.9DegF) (LOW) Peripheral Pulse Rate: 72/min Respiratory Rate: 16/min Systolic Blood Pressure: 110mmHg Diastolic Blood Pressure: 60mmHg NIBP Mean: 77mmHg BP Location: Left upper extremity Heart Rhythm: Regular Actual Weight: 53.000kg(Converted to: 116lb 14oz) Weight Source: Standing scale Dosing Weight Clinic: 53.00kg SAMMIE TAYLOR - 02/09/2011 15:36 CDT Subjective Pain Symptoms: SAMMIE Peters - 02/09/2011 15:36 CDT Dependent Habits Tobacco Use/Currently Using: SAMMIE Peters - 02/09/2011 15:36 CDT Allergy Allergies (Active) NKA Estimated Onset Date: Unspecified ; Created By: ANGELLA SOUSA MD; Reaction Status: Active ; Category: Drug ; Substance: NKA ; Type: Allergy ; Updated By: ANGELLA SOUSA MD; Reviewed Date: 12/16/2009 13:11 CDT Source: [employer] Document Id: [id number] documented in this encounter Plan of Treatment Not on filedocumented as of this encounter Visit Diagnoses Not on filedocumented in this encounter
--- OUTSIDE RECORDS SUMMARY | 2022-05-02 15:42 | XMS_ITS | Encounter Summary ---
:2000 Author Organization [facility] Address [address] [place] [address] Care Team Providers Name Role Phone Karen Zaman APRN, C.N.P. Primary Care Provider [phone] Encounter Details Date Type Department Care Team Description 05/10/2021 Admin Visit Urgent Care in [place], [place] [address] [id number] [facility] [phone] Social History Tobacco Use Types Packs/Day Years [...] on filedocumented in this encounter Care Teams Casting Operator Helper Relationship Specialty Start Date End Date Karen Zaman APRN, C.N.P. PCP - General 02/23/17 05/11/[address] [id number] documented as of this encounter
--- OUTSIDE RECORDS SUMMARY | 2022-05-02 15:42 | XMS_ITS | Encounter Summary ---
:2000 Author Organization [facility] Address [address] [place] [address] Care Team Providers Name Role Phone ChauYayaedgar Saxena APRN, C.N.P. Primary Care Provider [phone] Reason for Visit Reason Comments Vomiting Encounter Details Date Type Department Care Team Description 05/17/2021 Nurse Triage Department of [facility] Jory Sibley, Vomiting Medicine, [facility], R.N. in [place], [place] [address] [place] [address] Social History Tobacco Use Types Packs/Day Years Used Date Smoking Tobacco: Never Smokeless Tobacco: Never Alcohol Use Standard Drinks/Week Comments No 0 (1 standard drink = 0.6 oz pure alcoho l) Sex Assigned at Date Recorded Not on file documented as of this encounter Miscellaneous Notes Telephone Encounter - Jory Sibley, R.N. - 05/17/2021 12:38 PM CDT Chief Complaint / Reason for Call Patient is a 21 y.o. female calling regarding Vomiting. Assessment Concern: She tested positive for COVID 7 days ago and is unable to hold anything down due to vomiting Present for: A week Home cares tried: Pepto Bismol, Tylenol., sleeping Calling to request: advice The recommended disposition is No disposition on file.. Reason for Disposition ? ? [1] SEVERE vomiting (e.g., 6 or more times/day) AND [2] present > 8 hours (Exception: patientsounds well, is drinking liquids, does not sound dehydrated, and vomiting has lasted less than 24 hours) Protocols used: [id number] Care Advice Patient/Caregiver understands and will follow care advice?: Yes, able to teach back GO TO ED NOW (OR PCP TRIAGE): * IF NO PCP (PRIMARY CARE PROVIDER) SECOND-LEVEL TRIAGE: You need to be seen within the next hour. Go to the ED/UCC at the nearest Hospital. Leave as soon as you can. BRING A BUCKET IN CASE OF VOMITING: * You may wish to bring a bucket, huerta, or sack with you in case there is more vomiting during the drive. BRING MEDICINES: * Please bring a list of your current medicines when you go to see the doctor. * It is also a good idea to bring the pill bottles too. This will help the doctor to make certain you are taking the right medicines and the right dose. documented in this encounter Plan of Treatment Not on filedocumented as of this encounter Visit Diagnoses Not on filedocumented in this encounter Additional Health Concerns Infection Onset Date Last Indicated Resolved Time COVID19 05/10/2021 05/10/2021 05/30/2021 4:45 AM CDT documented as of this encounter Care Teams Tiler'S Assistant Relationship Specialty Start Date End Date Niecy Ritchie APRN, C.N.P. PCP - General Family Medicine 05/12/21 01/02/[address] [place] [address] Ermelinda CAMIMARGO KNUTSON [phone] documented as of this encounter
[2022-05-02 22:39] LABS: GC DNA Amplified* NOT DETECTED (No Detected)
[2022-05-02 22:53] LABS: Chlamydia DNA Amplified* DETECTED (No Detected)
== END 2022-05-02 15:41 | disposition home or self-care (01) ==
PROVIDERS: Visit Provider Physician Assistant
DX: Z11.3 Encounter for screening for infections with a predominantly sexual mode of transmission (principal)
CPT/HCPCS: 87491; 87591

== ENCOUNTER 2025-08-06 14:19 | Outpatient (CLI) | payer BC, SELFPAY ==
[2025-08-06 18:06] LABS: Chlamydia DNA Amplified* NOT DETECTED (No Detected); GC DNA Amplified* NOT DETECTED (No Detected)
[2025-08-08 14:00] LABS: HPV Source Cervical
[2025-08-13 10:21] LABS: Pap Test Digital Imaging Done
== END 2025-08-06 14:20 | disposition home or self-care (01) ==
PROVIDERS: Visit Provider Advanced Practice Midwife
DX: Z12.4 Encounter for screening for malignant neoplasm of cervix (principal); Z11.3 Encounter for screening for infections with a predominantly sexual mode of transmission
CPT/HCPCS: 87491; 87591; 87624; 87625; 88141; 88142; 88175